=== PATIENT | female | born 1965 | race Caucasian/White ===

== ENCOUNTER 2016-11-17 07:33 | Emergency (ER) | payer OTHER ==
[~2016-11-17] VITALS: Ht 152.4 cm; Wt 74.0 kg
[~2016-11-17 07:33] MED LIST: GABA-528 PO; INSU100C SQ; MECL12.574 PO; PRAV40TA76 PO; TRAM50TA2 PO
[2016-11-17 07:34] VITALS: Ht 152.4 cm; Wt 74.0 kg
[2016-11-17] MEDS ORDERED: DIPHTH/TET/ACEL PERTUSS (ADULT) 0.5 ML VIAL IM* ONE (08:30)
[2016-11-17] MEDS ORDERED: LIDOCAINE 1%/EPI (MDV) 20 ML INJ SC ONE (08:30)
--- NOTE | 2016-11-17 09:31 | RADRPT ---
PROCEDURE: XR Sacrum and Coccyx CLINICAL INDICATION: Pain TECHNIQUE: 3 views were submitted COMPARISON: None FINDINGS: Osseous structures: appear well mineralized and intact with no fracture or destructive process iden tified. Joint spaces: the sacroiliac joints appear unremarkable without significant erosions or sclerosis. Soft tissues: Phleboliths are seen in the pelvis. IMPRESSION: Unremarkable sacrum and coccyx study. Physician Elissa Date Time Electronically viewed and signed by Marcelo Anaya Physician on 11/17/2016 09:31 /
--- NOTE | 2016-11-17 09:53 | ERD ---
ER Documentation Chief Complaint Date/Time DATE: 11/17/16 TIME: 09:50 Chief Complaint pt bib family with c/o head lac s/p trip and fall at home, HPI This is a 51-year-old female presenting to the emergency department complaining of a scalp laceration on the right upper parietal scalp region since she slipped on a plastic bag at 7:00 this morning. Patient states that she did not have any nausea, vomiting, headache, dizziness. Patient states that she fell down and hit her buttock region and then hit her right top of her head.. She denies any neuro deficits. Denies any saddle anesthesia, bladder or bowel incontinence ROS All systems reviewed and are negative except as per history of present illness. Medications Home Meds Active Scripts Meclizine Hcl* (Antivert*) 12.5 Mg Tab, 12.5 MG PO Q6H Y for DIZZINESS, #20 TAB Prov:BHARATHISenaDERIK DO 08/16/16 Reported Medications Insulin Lispro (Humalog) 100 Unit/1 Ml Cartridge, 35 UNIT SQ QHS 08/16/16 Insulin Lispro (Humalog) 100 Unit/1 Ml Cartridge, 52 UNIT SQ QAM 08/16/16 Pravastatin Sodium* (Pravastatin Sodium*) 40 Mg Tablet, 40 MG PO DAILY, TAB 06/18/15 Tramadol HCl (Tramadol HCl) 50 Mg Tab, 50 MG PO BID Y for PAIN, TAB 06/18/15 Gabapentin* (Gabapentin*) 800 Mg Tablet, 800 MG PO TID 10/16/11 Allergies Allergies: Coded Allergies: No Known Drug Allergies (Verified Allergy, Unknown, 11/17/16) PMhx/Soc History of Surgery: Yes (GALLBLADDER, YOLIS EYE, C SECTION X3) Anesthesia Reaction: No Hx Neurological Disorder: No Hx Respiratory Disorders: Yes (ASTHMA ) Hx Cardiac Disorders: No Hx Psychiatric Problems: No Hx Miscellaneous Medical Probl: Yes (DM, HIGH CHOLESTEROL ) Hx Alcohol Use: No Hx Substance Use: No Hx Tobacco Use: No Physical Exam Vitals Vital Signs Date Time Temp Pulse Resp B/P Pulse Ox O2 Delivery O2 Flow Rate FiO2 11/17/16 07:34 84 18 168/90 99 Physical Exam GENERAL: well-developed/well-nourished, in no apparent distress, non-toxic appearing HENT: NC/AT, bilateral tympanic membrane is normal with good cone of light, nares patent, oropharynx clear without exudates EYES: Conjunctiva normal, PERRLA, EOMI, no nystagmus noted NECK: Supple, no lymphadenopathy PULM: CTA bilaterally, no rales, rhonchi, or wheezing heard CV: Normal S1S2, RRR, good capillary refill GI: Soft, non-distended, normal bowel sounds, non-tender BACK: No midline tenderness, no masses, No CVAT Tenderness to palpation in the coccyx region EXT: No clubbing, cyanosis, or edema NEURO: Alert and orientated to person, place, and time. CN II-IIX intact. Gait and coordination were normal. 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 and within normal limits SKIN: 5 mm superficial abrasion on the right upper parietal scalp PSYCH: Normal mood and mentation, patient denied SI Results 24 hrs Current Medications Medications (Trade) Dose Ordered Sig/Juju Route PRN Reason Start Time Stop Time Status Last Admin Dose Admin Lidocaine/ Epinephrine (Xylocaine 1%/ Epi (Mdv) 20 ml) 20 ml ONCE ONCE SC 11/17/16 08:30 11/17/16 09:26 DC Diphtheria/ Tetanus/Acell Pertussis (Adacel) 0.5 ml ONCE ONCE IM* 11/17/16 08:30 11/17/16 08:31 DC 11/17/16 08:35 Procedures/MDM This is a 51-year-old female presenting to the emergency department complaining of a scalp laceration on the right upper parietal scalp region since she slipped on a plastic bag at 7:00 this morning. Patient states that she fell down and hit her buttock region and then hit her right top of her head. Patient did not have any evidence of nausea, vomiting, neuro deficits. Differentials include intracranial bleeding, skull fracture, concussion, postconcussion headache however it is unlikely due to physical examination. Patient had a normal neuro exam and was acting normal in the examination room. CT scan's risks outweigh benefits, therefore discussed that observation is best and to watch out for any changes to return back to this facility. Patient expressed agreement and did not want to do a CT scan On examination patient had a scalp abrasion versus laceration on the right parietal lobe, it was very superficial and did not need any mike or suturing. The region was cleansed with peroxide and irrigated with normal saline. Bacitracin was applied. On examination patient was tender in the coccyx region, an x-ray was done and was unremarkable for any fracture. This likely a coccyx contusion stable and neurovascularly intact. Strict precautions were given to return to the ER for any worsening condition or not improving as expected. Patient understood and agreed with this plan. Departure Diagnosis: Primary Impression: Scalp laceration Encounter type: initial encounter Qualified Code: S01.01XA - Scalp laceration, initial encounter Additional Impressions: Coccyx contusion Encounter type: initial encounter Qualified Code: S30.0XXA - Coccyx contusion, initial encounter Head injury Encounter type: initial encounter Qualified Code: S09.90XA - Head injury, initial encounter Condition: Stable Patient Instructions: First Aid: Head Injuries, Scalp Contusion, No Wake Up, HEAD INJURY, No Wake-Up (Adult), Laceration, Scalp Additional Instructions: Visite a leach ilana alfaro para un EXAMEN.Regrese a estas instalaciones si no se mejora le esperbamos o le le dijimos. Sasser toda la medicina davidson y le se le indic. Regrese a estas instalaciones si no se mejora le esperbamos o le le dijimos. MINA PIMENTEL PA-C Nov 17, 2016 09:53
[2016-11-17] MEDS ORDERED: ACET500C5 PO (09:54)
[2016-11-17 10:05] VITALS: BP 154/89; PULSE 79; RESP 18; TEMP 98.4
== END 2016-11-17 10:05 | disposition home or self-care (01) ==
LOC: FTE 07:33
DX: S01.01XA Laceration without foreign body of scalp, initial encounter (principal); S30.0XXA Contusion of lower back and pelvis, initial encounter; J45.909 Unspecified asthma, uncomplicated; E11.9 Type 2 diabetes mellitus without complications; W01.198A Fall on same level from slipping, tripping and stumbling with subsequent striking against other object, initial encounter; Y92.009 Unspecified place in unspecified non-institutional (private) residence as the place of occurrence of the external cause; Z23 Encounter for immunization; Z79.4 Long term (current) use of insulin
CPT/HCPCS: 72220; 90715; Z7610; 90471

== ENCOUNTER 2017-09-06 18:35 | Emergency (ER) | payer OTHER ==
[~2017-09-06] VITALS: Ht 162.6 cm; Wt 75.8 kg
[~2017-09-06 18:35] MED LIST changes: +ACET500C5 PO
[2017-09-06 18:40] VITALS: Ht 162.6 cm; Wt 75.8 kg
[2017-09-06] MEDS ORDERED: ONDANSETRON 4 MG INJ IV STA (21:14)
[2017-09-06] MEDS ORDERED: morphine 4 MG/ML VIAL IV STA (21:14)
[2017-09-06] MEDS ORDERED: SOD CHLORIDE 0.9% 1,000 ML IV STA (21:14)
[2017-09-06 22:16] LABS: ADD UMIC YES; UR ASCORBIC ACID 40 mg/dL (NEGATIVE); UR BACTERIA FEW /HPF (NONE SEEN); UR BILIRUBIN (Dip) NEGATIVE (NEGATIVE); UR BLOOD (Dip) NEGATIVE (NEGATIVE); UR CLARITY SLIGHTLY CLOUDY (CLEAR); UR COLOR YELLOW (YELLOW); UR GLUCOSE (Dip) 1+ mg/dL (NEGATIVE); UR KETONES (Dip) NEGATIVE (NEGATIVE); UR LEUKOCYTE ESTERASE (Dip) NEGATIVE Leu/ul (NEGATIVE); UR MUCUS FEW /HPF (NONE SEEN); UR NITRITE (Dip) NEGATIVE (NEGATIVE); UR RBC 3 /HPF (0-5); UR SPECIFIC GRAVITY (Dip) 1.027 (1.003-1.030); UR SQUAMOUS EPITHELIAL CELL FEW /HPF (FEW); UR TOTAL PROTEIN (Dip) 3+ mg/dl (NEGATIVE); UR UROBILINOGEN (Dip) NEGATIVE (NEGATIVE)
[2017-09-06 22:16] LABS: BASOPHILS % 0.3 % (0.0-2.0); EOSINOPHILS # 0.1 10^3/ul (0.0-0.5); EOSINOPHILS % 0.7 % (0.0-7.0); HEMATOCRIT 40.3 % (37.0-47.0); HEMOGLOBIN 13.9 g/dl (12.0-16.0); MEAN CORPUSCULAR HEMOGLOBIN 30.3 pg (29.0-33.0); MEAN CORPUSCULAR HGB CONC 34.5 g/dl (32.0-37.0); MEAN PLATELET VOLUME 10.5 fl (7.4-10.4); MONOCYTE # 0.6 10^3/ul (0.3-0.9); MONOCYTES % 5.6 % (0.0-11.0); NEUTROPHIL # 5.8 10^3/ul (1.6-7.5); NEUTROPHILS % 55.1 % (39.0-77.0); PLATELET COUNT 288 10^3/UL (140-415); RED BLOOD COUNT 4.58 10^6/ul (4.20-5.40); RED CELL DISTRIBUTION WIDTH 11.8 % (11.5-14.5); WHITE BLOOD COUNT 10.5 10^3/ul (4.8-10.8)
--- NOTE | 2017-09-06 22:22 | RADRPT ---
PROCEDURE: XR Chest. CLINICAL INDICATION: Chest pain TECHNIQUE: Single portable view of the chest was obtained COMPARISON: CR CHEST 08/16/2016 FINDINGS: The heart and mediastinum are within normal limits. There are mild bibasilar atelectatic changes. The lungs are otherwise clear. There is no pleural effusion or pneumothorax. RPTAT: AA IMPRESSION: Mild bibasilar linear atelectatic changes, left greater than right. .Smooth Lopez MD, MD Date Time Electronically viewed and signed by .Smooth Lopez MD, MD on 09/06/2017 22:21 .S/
--- NOTE | 2017-09-06 22:24 | RADRPT ---
PROCEDURE: XR Abdomen. CLINICAL INDICATION: Abdominal pain. TECHNIQUE: 4 frontal views of the abdomen. COMPARISON: None. FINDINGS: There is moderate retained stool within the colon. Cholecystectomy clips are present. There is no b owel obstruction or free air. There is no organomegaly. There is no abnormal calcification. The o sseous structures are unremarkable. IMPRESSION: Moderate retained stool within the colon. Status post cholecystectomy. .Gilbert Rouse MD, MD Date Time Electronically viewed and signed by .Gilbert Rouse MD, MD on 09/06/2017 22:24 .T/
[2017-09-06 22:34] LABS: ALANINE AMINOTRANSFERASE 50 IU/L (13-69); ALBUMIN 4.2 g/dl (3.3-4.9); ALBUMIN/GLOBULIN RATIO 1.02; ALKALINE PHOSPHATASE 108 IU/L (42-121); ANION GAP 13 (8-16); ASPARTATE AMINO TRANSFERASE 36 IU/L (15-46); BILIRUBIN,INDIRECT 0.5 mg/dl (0-1.1); BILIRUBIN,TOTAL 0.5 mg/dl (0.2-1.3); BLOOD UREA NITROGEN 32 mg/dl (7-20); CARBON DIOXIDE 35 mmol/L (21-31); CHLORIDE 99 mmol/L (97-110); CREATININE 1.13 mg/dl (0.44-1.00); GLUCOSE 73 mg/dl (70-220); POTASSIUM 3.8 mmol/L (3.5-5.1); SODIUM 143 mmol/L (135-144); TOTAL PROTEIN 8.3 g/dl (6.1-8.1)
[2017-09-06] MEDS ORDERED: KETOROLAC 30 MG INJ IV STA (22:34)
[2017-09-06 22:48] LABS: TROPONIN-I < 0.012 ng/ml (0.00-0.12)
[2017-09-06] MEDS ORDERED: METOCLOPRAMIDE 10 MG INJ IV ONE (23:00)
[2017-09-06] MEDS ORDERED: DIPHENHYDRAMINE 50 MG INJ IV ONE (23:00)
[2017-09-06] MEDS ORDERED: CEFEPIME 1GM/50 ML (PMX) 50 ML IVPB ONE (23:00)
--- NOTE | 2017-09-06 23:22 | RADRPT ---
PROCEDURE: CT brain without contrast. CLINICAL INDICATION: Headache. TECHNIQUE: CT scan of the brain was performed on a multi-detector high-resolution CT scanner. Co ntiguous axial images were obtained from the skull base to the vertex without intravenous contrast. Coronal and sagittal reformatted images were also obtained. Images were reviewed on the PACS works tation. DICOM images are available. One or more of the following dose reduction techniques were used: - Automated exposure control. - Adjustment of the mA and/or kV according to patient size. - Use of iterative reconstruction technique. Exam CTD/vol = 44.63 mGy. Total exam DLP = 720.23 mGy-cm. COMPARISON: 08/16/2016. FINDINGS: The ventricles and cortical sulci are within normal limits for patient's age. There are no areas of abnormal attenuation within the brain parenchyma. There is no mass effect or midline shift. There is no intracranial hemorrhage or abnormal extra-axial collection. There are atherosclerotic calcificat ions within bilateral distal internal carotid and vertebral arteries. The calvarium is intact. There is no evidence of fracture. Visualized paranasal sinuses and mastoid air cells are clear. IMPRESSION: No acute intracranial abnormality identified. Cerebral atherosclerosis. .Gilbert Rosue MD, MD Date Time Electronically viewed and signed by .Gilbert Rouse MD, MD on 09/06/2017 23:21 .T/
[2017-09-06] MEDS ORDERED: NAPR-685 PO (23:39)
[2017-09-06] MEDS ORDERED: ONDA4TAB14 PO (23:39)
[2017-09-06] MEDS ORDERED: POLY17PO6 PO (23:39)
[2017-09-06] MEDS ORDERED: MAGN296S40 PO (23:39)
[2017-09-06] MEDS ORDERED: CIPR500T4 PO (23:39)
[2017-09-06] MEDS ORDERED: NITR-58 PO (23:39)
--- NOTE | 2017-09-06 23:53 | ERD ---
ER Documentation Chief Complaint Chief Complaint epigastric pain w/ vomiting x 2 weeks, headache HPI This 51-year-old female presents for epigastric pain and vomiting this on and off for 2 weeks as well as a headache it is on the right side of her head and her right forehead. She has some dysuria and the abdominal pain radiates to her back in her lower mid back. ROS All systems reviewed and are negative except as per history of present illness. Medications Home Meds Active Scripts Polyethylene Glycol* (Miralax*) 17 Gm Powd.pack, 17 GM PO DAILY for CONSTIPATION , #10 PACKET Prov:TONIA PENALOZA 09/06/17 Magnesium Citrate* (Magnesium Citrate*) 296 Ml Solution, 296 ML PO ONCE, #1 BOTTLE Prov:JOSEF PENALOZA09/06/17 Ondansetron (Ondansetron Odt) 4 Mg Tab.rapdis, 4 MG PO Q6H Y for NAUSEA AND/OR VOMITING, #10 TAB Prov:TONIA PENALOZA 09/06/17 Naproxen* (Naproxen*) 375 Mg Tablet, 375 MG PO BID Y for PAIN, #20 TAB Prov:JOSEF PENALOZA09/06/17 Nitrofurantoin Monohyd Macrocr* (Macrobid*) 100 Mg Capsr, 100 MG PO BID for 10 Days, CAP Prov:JOSEF PENALOZA09/06/17 Ciprofloxacin Hcl* (Ciprofloxacin Hcl*) 500 Mg Tablet, 500 MG PO BID for 10 Days , TAB Prov:TONIA PENALOZA 09/06/17 Acetaminophen* (Tylophen*) 500 Mg Capsule, 1 CAP PO Q4H WHILE AWAKE Y for PAIN AND OR ELEVATED TEMP, #20 CAP Prov:MINA PIMENTEL PA-C 11/17/16 Meclizine Hcl* (Antivert*) 12.5 Mg Tab, 12.5 MG PO Q6H Y for DIZZINESS, #20 TAB Prov:DERIK MCMAHON DO 08/16/16 Reported Medications Insulin Lispro (Humalog) 100 Unit/1 Ml Cartridge, 35 UNIT SQ QHS 08/16/16 Insulin Lispro (Humalog) 100 Unit/1 Ml Cartridge, 52 UNIT SQ QAM 08/16/16 Pravastatin Sodium* (Pravastatin Sodium*) 40 Mg Tablet, 40 MG PO DAILY, TAB 06/18/15 Tramadol HCl (Tramadol HCl) 50 Mg Tab, 50 MG PO BID Y for PAIN, TAB 06/18/15 Gabapentin* (Gabapentin*) 800 Mg Tablet, 800 MG PO TID 10/16/11 Allergies Allergies: Coded Allergies: No Known Drug Allergies (Verified Allergy, Unknown, 11/17/16) PMhx/Soc History of Surgery: No Anesthesia Reaction: No Hx Neurological Disorder: No Hx Respiratory Disorders: Yes (ASTHMA ) Hx Cardiac Disorders: Yes (High cholesterol) Hx Psychiatric Problems: No Hx Alcohol Use: No Hx Substance Use: No Hx Tobacco Use: No Smoking Status: Never smoker Physical Exam Vitals Vital Signs Date Time Temp Pulse Resp B/P Pulse Ox O2 Delivery O2 Flow Rate FiO2 09/06/17 18:40 98.3 82 20 190/87 98 Physical Exam Const: [] Mild distress, appears uncomfortable Head: Atraumatic Eyes: Normal Conjunctiva ENT: Normal External Ears, Nose and Mouth. Neck: Full range of motion..~ No meningismus. Resp: Clear to auscultation bilaterally Cardio: Regular rate and rhythm, no murmurs Abd: Soft, non tender, non distended. Normal bowel sounds Skin: No petechiae or rashes Back: No midline or flank tenderness Ext: No cyanosis, or edema Neur: Awake and alert oriented 3, no focal deficits Psych: Normal Mood and Affect Result Diagram: 09/06/17214909/06/172149 Results 24 hrs Laboratory Tests Test 09/06/17 21:50 09/06/17 21:58 White Blood Count 10.510^3/ul Red Blood Count 4.5810^6/ul Hemoglobin 13.9g/dl Hematocrit 40.3% Mean Corpuscular Volume 88.0fl Mean Corpuscular Hemoglobin 30.3pg Mean Corpuscular Hemoglobin Concent 34.5g/dl Red Cell Distribution Width 11.8% Platelet Count 69880^3/UL Mean Platelet Volume 10.5fl Neutrophils % 55.1% Lymphocytes % 38.0% Monocytes % 5.6% Eosinophils % 0.7% Basophils % 0.3% Nucleated Red Blood Cells % 0.0/100WBC Neutrophils # 5.810^3/ul Lymphocytes # 4.010^3/ul Monocytes # 0.610^3/ul Eosinophils # 0.110^3/ul Basophils # 0.010^3/ul Nucleated Red Blood Cells # 0.010^3/ul Sodium Level 143mmol/L Potassium Level 3.8mmol/L Chloride Level 99mmol/L Carbon Dioxide Level 35mmol/L Anion Gap 13 Blood Urea Nitrogen 32mg/dl Creatinine 1.13mg/dl Glucose Level 73mg/dl Calcium Level 11.0mg/dl Total Bilirubin 0.5mg/dl Direct Bilirubin 0.00mg/dl Indirect Bilirubin 0.5mg/dl Aspartate Amino Transf (AST/SGOT) 36IU/L Alanine Aminotransferase (ALT/SGPT) 50IU/L Alkaline Phosphatase 108IU/L Troponin I < 0.012ng/ml Total Protein 8.3g/dl Albumin 4.2g/dl Globulin 4.10g/dl Albumin/Globulin Ratio 1.02 Lipase 31U/L Urine Color YELLOW Urine Clarity SLIGHTLY CLOUDY Urine pH 5.0 Urine Specific [place] 1.027 Urine Ketones NEGATIVEmg/dL Urine Nitrite NEGATIVEmg/dL Urine Bilirubin NEGATIVEmg/dL Urine Urobilinogen NEGATIVEmg/dL Urine Leukocyte Esterase NEGATIVELeu/ul Urine Microscopic RBC 3/HPF Urine Microscopic WBC 7/HPF Urine Squamous Epithelial Cells FEW/HPF Urine Bacteria FEW/HPF Urine Mucus FEW/HPF Urine Hemoglobin NEGATIVEmg/dL Urine Glucose 1+mg/dL Urine Total Protein 3+mg/dl Current Medications Medications (Trade) Dose Ordered Sig/Juju Route PRN Reason Start Time Stop Time Status Last Admin Dose Admin Sodium Chloride (NS) 1,000 ml @ 1,000 mls/hr Q1H STAT IV 09/06/17 21:14 09/06/17 22:13 DC 09/06/17 22:21 Morphine Sulfate (morphine) 4 mg ONCE STAT IV 09/06/17 21:14 09/06/17 21:15 DC Ondansetron HCl (Zofran Inj) 4 mg ONCE STAT IV 09/06/17 21:14 09/06/17 21:15 DC 09/06/17 22:22 Ketorolac Tromethamine 30 mg 30 mg ONCE STAT IV 09/06/17 22:34 09/06/17 22:35 DC 09/06/17 22:42 Cefepime HCl (Maxipime 1gm/50 ml (Pmx)) 50 ml @ 100 mls/hr ONCE ONCE IVPB 09/06/17 23:00 09/06/17 23:29 DC 09/06/17 23:05 Diphenhydramine HCl (Benadryl) 12.5 mg ONCE ONCE IV 09/06/17 23:00 09/06/17 23:01 DC 09/06/17 23:05 Metoclopramide HCl (Reglan) 10 mg ONCE ONCE IV 09/06/17 23:00 09/06/17 23:01 DC 09/06/17 23:06 Procedures/MDM 51-year-old female with abdominal pain is likely a combination of some constipation as well as pyelonephritis. She was given normal saline as well as cefepime in the emergency room. Also complained of headache and a CT was performed to look for any mass or intracranial cause of right-sided headache and was found. She was given a headache cocktail of Benadryl 2.5 mg in Reglan 10 mg which helped her headache greatly. She was given a Toradol injection and she did not want morphine. This helped her with her abdominal pain greatly. Nausea was resolved with Zofran. Cardiac workup with troponin EKG was performed because of epigastric pain however there is no signs of ischemia patient had normal EKG. I am going to discharge her with Zofran, Cipro and Macrobid for pyelonephritis as well as naproxen for pain and MiraLAX and magnesium citrate for constipation. Primary care follow-up in 2-3 days and return precautions given. CT brain interpretation: See no acute process. I see no hemorrhage, no mass- effect, no midline shift, no skull fracture Abdominal x-ray interpretation: Moderate stool retention transverse, descending and ascending colon, no free air or air-fluid levels, no fractures Chest x-ray interpretation: I see no acute process, see no filtrate, no pulmonary edema, no fractures, no pneumothorax. EKG interpretation: Normal sinus rhythm rate of 76, right axis deviation, no ST or T-wave changes concerning for acute ischemia, normal intervals. Departure Diagnosis: Primary Impression: Abdominal pain, acute Additional Impressions: Pyelonephritis Constipation Renal insufficiency Condition: Stable Patient Instructions: Constipation (Adult), Headache, Unspecified, Pyelonephritis, Female (Adult) Additional Instructions: Llame al doctor MAANA y lc ellie KASSANDRA PARA DENTRO DE 2-3 MORGAN.Dgale a la secretaria que nosotros le instruimos hacer esta kassandra.Avise o llame si leach condicin se empeora antes de la kassandra. Regresa aqui si peor o no mejor. TONIA PENALOZA DO Sep 06, 2017 23:51
[2017-09-07 00:16] VITALS: BP 146/86; PULSE 70; RESP 18; TEMP 98.1
== END 2017-09-07 00:17 | disposition home or self-care (01) ==
LOC: E/R 18:35
DX: N12 Tubulo-interstitial nephritis, not specified as acute or chronic (principal); K59.00 Constipation, unspecified; N28.9 Disorder of kidney and ureter, unspecified; J45.909 Unspecified asthma, uncomplicated; R51 Headache; Z79.4 Long term (current) use of insulin
CPT/HCPCS: 36415; 70450; 71010; 74010; 80053; 81001; 83690; 84484; 85025; 96374; 96375; J0692; J1200; J1885; J2405; J2765; J7030; Z7502; 93005; J2270

== ENCOUNTER 2017-09-09 14:55 | Emergency (ER) | payer OTHER ==
[~2017-09-09] VITALS: Ht 160 cm; Wt 75.7 kg
[~2017-09-09 14:55] MED LIST changes: +CIPR500T4 PO; +MAGN296S40 PO; +NAPR-685 PO; +NITR-58 PO; +ONDA4TAB14 PO; +POLY17PO6 PO
[2017-09-09 15:02] VITALS: Ht 160 cm; Wt 75.7 kg
[2017-09-09] MEDS ORDERED: KETOROLAC 30 MG INJ IV STA (19:19)
[2017-09-09] MEDS ORDERED: ONDANSETRON 4 MG INJ IV STA (19:19)
--- NOTE | 2017-09-09 20:00 | RADRPT ---
PROCEDURE: CT abdomen and pelvis without contrast. CLINICAL INDICATION: Abdominal Pain TECHNIQUE: CT scan of the abdomen and pelvis without contrast was performed and is reconstructed a t 2.5 mm contiguous axial intervals from the dome of the diaphragm to the inferior pubic rami.. The patient was scanned without intravenous contrast. Sagittal and coronal reformatted images were obt ained from the axial source images. The calculated radiation dose measures 950 mGy centimeters. The CTDI measures 16 mGy. Individualized dose optimization technique was used for the performance of this exam. This included 1. Automated exposure control. 2. Adjustment of the mA and / or kV according to the patient's size. 3. Use of iterative reconstructed technique. COMPARISON: None. FINDINGS: The lung bases are clear of any alveolar infiltrate or nodule. Mild ground-glass interstitial infilt rates are seen at the lung bases. No effusion is seen. The liver is of normal size, contour and attenuation with no mass or ductal dilatation. Gallbladder has been removed. No splenic, adrenal or pancreatic abnormalities present. Kidneys are of normal size and contour. No hydronephrosis, calculus or masses seen. Ureters are o f normal course and caliber with no stone. No bladder mass or stone is present. Uterus is unremarka ble. No adnexal mass There is no aneurysm. No adenopathy is present. No bowel mass or obstruction is present. The appendix is normal. No phlegmon, ascites or pneumop eritoneum is visualized. There is a midline lower pelvic wall hernia containing fat. The osseous structures are intact. IMPRESSION: No evidence of urolithiasis, obstructive uropathy, diverticulitis or appendicitis. Post cholecystectomy. Lower ventral pelvic wall hernia containing fat. Mild ground-glass interstitial infiltrates lung bases suggestive of mild interstitial edema. .Rob Perez MD, MD Date Time Electronically viewed and signed by .Rob Perez MD, MD on 09/09/2017 20:00 .A/
[2017-09-09] MEDS ORDERED: ONDA4TAB14 PO (20:29)
[2017-09-09] MEDS ORDERED: HYDR-902 PO (20:29)
[2017-09-09 20:51] LABS: BASOPHILS % 0.3 % (0.0-2.0); EOSINOPHILS # 0.1 10^3/ul (0.0-0.5); EOSINOPHILS % 0.7 % (0.0-7.0); HEMATOCRIT 40.3 % (37.0-47.0); HEMOGLOBIN 13.9 g/dl (12.0-16.0); LYMPHOCYTES # 2.9 10^3/ul (0.8-2.9); LYMPHOCYTES % 30.9 % (15.0-51.0); MEAN CORPUSCULAR HEMOGLOBIN 30.3 pg (29.0-33.0); MEAN CORPUSCULAR HGB CONC 34.5 g/dl (32.0-37.0); MEAN CORPUSCULAR VOLUME 87.8 fl (82.0-101.0); MEAN PLATELET VOLUME 10.7 fl (7.4-10.4); MONOCYTE # 0.5 10^3/ul (0.3-0.9); MONOCYTES % 4.8 % (0.0-11.0); NEUTROPHILS % 63.1 % (39.0-77.0); PLATELET COUNT 306 10^3/UL (140-415); RED BLOOD COUNT 4.59 10^6/ul (4.20-5.40); RED CELL DISTRIBUTION WIDTH 11.6 % (11.5-14.5); WHITE BLOOD COUNT 9.4 10^3/ul (4.8-10.8)
--- NOTE | 2017-09-09 20:53 | ERD ---
ER Documentation Chief Complaint Chief Complaint epigastric pain and vomiting x 2 weeks HPI Patient is a 51 yo female with mid epigastric ap for 2 weeks. It comes and goes and she has vomiting as well. There are no fevers. She was seen 09/06/17 for abd pain and had labs, CXR, KUB, CT brain and was diagnosed with pyelo and constipation. The patient has multiple visits for various complaints upon review of medical records. Her doctor is Dr. Dhillon. ROS All systems reviewed and are negative except as per history of present illness. Medications Home Meds Active Scripts Ondansetron (Ondansetron Odt) 4 Mg Tab.rapdis, 4 MG PO Q6H Y for NAUSEA AND/OR VOMITING, #10 TAB Prov:TRISTIAN RODRÍGUEZ MD 09/09/17 Hydrocodone/Acetaminophen ([place] 10-325 Tablet) 1 Each Tablet, 1 TAB PO Q6H Y for PAIN, #7 TAB Prov:TRISTIAN RODRÍGUEZ MD 09/09/17 Polyethylene Glycol* (Miralax*) 17 Gm Powd.pack, 17 GM PO DAILY for CONSTIPATION , #10 PACKET Prov:TONIA PENALOZA 09/06/17 Magnesium Citrate* (Magnesium Citrate*) 296 Ml Solution, 296 ML PO ONCE, #1 BOTTLE Prov:09/06/17 Ondansetron (Ondansetron Odt) 4 Mg Tab.rapdis, 4 MG PO Q6H Y for NAUSEA AND/OR VOMITING, #10 TAB Prov:09/06/17 Naproxen* (Naproxen*) 375 Mg Tablet, 375 MG PO BID Y for PAIN, #20 TAB Prov:09/06/17 Nitrofurantoin Monohyd Macrocr* (Macrobid*) 100 Mg Capsr, 100 MG PO BID for 10 Days, CAP Prov:TONIA09/06/17 Ciprofloxacin Hcl* (Ciprofloxacin Hcl*) 500 Mg Tablet, 500 MG PO BID for 10 Days , TAB Prov:BAILEYTONIA09/06/17 Acetaminophen* (Tylophen*) 500 Mg Capsule, 1 CAP PO Q4H WHILE AWAKE Y for PAIN AND OR ELEVATED TEMP, #20 CAP Prov:MINA PIMENTEL PA-C 11/17/16 Meclizine Hcl* (Antivert*) 12.5 Mg Tab, 12.5 MG PO Q6H Y for DIZZINESS, #20 TAB Prov:DERIK MCMAHON DO 08/16/16 Reported Medications Insulin Lispro (Humalog) 100 Unit/1 Ml Cartridge, 35 UNIT SQ QHS 08/16/16 Insulin Lispro (Humalog) 100 Unit/1 Ml Cartridge, 52 UNIT SQ QAM 08/16/16 Pravastatin Sodium* (Pravastatin Sodium*) 40 Mg Tablet, 40 MG PO DAILY, TAB 06/18/15 Tramadol HCl (Tramadol HCl) 50 Mg Tab, 50 MG PO BID Y for PAIN, TAB 06/18/15 Gabapentin* (Gabapentin*) 800 Mg Tablet, 800 MG PO TID 10/16/11 Allergies Allergies: Coded Allergies: No Known Drug Allergies (Verified Allergy, Unknown, 11/17/16) PMhx/Soc History of Surgery: No Anesthesia Reaction: No Hx Neurological Disorder: No Hx Respiratory Disorders: Yes (ASTHMA ) Hx Cardiac Disorders: Yes (High cholesterol) Hx Psychiatric Problems: No Hx Alcohol Use: No Hx Substance Use: No Hx Tobacco Use: No FmHx Family History: diabetes Physical Exam Vitals Vital Signs Date Time Temp Pulse Resp B/P Pulse Ox O2 Delivery O2 Flow Rate FiO2 09/09/17 15:02 98.6 78 18 168/82 96 Physical Exam Const: Mod distress secondary to pain Head: Atraumatic Eyes: Normal Conjunctiva ENT: Normal External Ears, Nose and Mouth. Neck: Full range of motion..~ No meningismus. Resp: Clear to auscultation bilaterally Cardio: Regular rate and rhythm, no murmurs Abd: Soft, diffuse TTP without guarding Skin: No petechiae or rashes Back: No midline or flank tenderness Ext: No cyanosis, or edema Neur: Awake and alert Psych: Normal Mood and Affect Results 24 hrs Laboratory Tests Test 09/09/17 20:35 White Blood Count Pending Red Blood Count Pending Hemoglobin Pending Hematocrit Pending Mean Corpuscular Volume Pending Mean Corpuscular Hemoglobin Pending Mean Corpuscular Hemoglobin Concent Pending Red Cell Distribution Width Pending Platelet Count Pending Mean Platelet Volume Pending Current Medications Medications (Trade) Dose Ordered Sig/Juju Route PRN Reason Start Time Stop Time Status Last Admin Dose Admin Ondansetron HCl (Zofran Inj) 4 mg ONCE STAT IV 09/09/17 19:19 09/09/17 19:20 DC 09/09/17 20:24 Ketorolac Tromethamine (Toradol) 30 mg ONCE STAT IV 09/09/17 19:19 09/09/17 19:20 DC 09/09/17 20:24 Procedures/MDM CT abd and pelvis neg for surgical process per radiology. Labs pending. 51 yo female who presents with abd pain. CT negative and patient has had cholecystectomy. Labs and pending but if these are normal I believe outpatient management is appropriate. Patient will be signed out to Dr. Huber for follow up on labs. Doubt cholecystectomy or appendicitis or bowel obstruction at this time. Departure Diagnosis: Primary Impression: Abdominal pain Abdominal location: generalized Qualified Code: R10.84 - Generalized abdominal pain Condition: Fair Patient Instructions: Abdominal Pain Additional Instructions: Visite a leach ilana alfaro para un EXAMEN.Regrese a estas instalaciones si no se mejora le esperbamos o le delma vega. TRISTIAN RODRÍGUEZ MD Sep 09, 2017 20:53
[2017-09-09 21:11] LABS: ALANINE AMINOTRANSFERASE 38 IU/L (13-69); ALBUMIN 4.2 g/dl (3.3-4.9); ALKALINE PHOSPHATASE 104 IU/L (42-121); ANION GAP 15 (8-16); ASPARTATE AMINO TRANSFERASE 28 IU/L (15-46); BILIRUBIN,INDIRECT 0.2 mg/dl (0-1.1); BILIRUBIN,TOTAL 0.2 mg/dl (0.2-1.3); BLOOD UREA NITROGEN 20 mg/dl (7-20); CALCIUM 9.7 mg/dl (8.4-10.2); CARBON DIOXIDE 30 mmol/L (21-31); CHLORIDE 98 mmol/L (97-110); CREATININE 1.14 mg/dl (0.44-1.00); GLUCOSE 180 mg/dl (70-220); SODIUM 139 mmol/L (135-144)
[2017-09-09 21:23] LABS: TROPONIN-I < 0.012 ng/ml (0.00-0.12)
[2017-09-09 21:38] LABS: URINE BLOOD (Dip) POC 1+ (NEGATIVE)
[2017-09-09 21:52] LABS: ADD UMIC YES; UR ASCORBIC ACID NEGATIVE (NEGATIVE); UR BILIRUBIN (Dip) NEGATIVE (NEGATIVE); UR BLOOD (Dip) NEGATIVE (NEGATIVE); UR CLARITY CLEAR (CLEAR); UR COLOR YELLOW (YELLOW); UR GLUCOSE (Dip) 1+ mg/dL (NEGATIVE); UR KETONES (Dip) TRACE mg/dL (NEGATIVE); UR LEUKOCYTE ESTERASE (Dip) NEGATIVE Leu/ul (NEGATIVE); UR MUCUS FEW /HPF (NONE SEEN); UR NITRITE (Dip) NEGATIVE (NEGATIVE); UR RBC 4 /HPF (0-5); UR SQUAMOUS EPITHELIAL CELL FEW /HPF (FEW); UR TOTAL PROTEIN (Dip) 3+ mg/dl (NEGATIVE); UR UROBILINOGEN (Dip) NEGATIVE (NEGATIVE)
[2017-09-09 23:23] VITALS: BP 107/62; PULSE 73; RESP 18; TEMP 97.7
== END 2017-09-09 23:25 | disposition home or self-care (01) ==
LOC: E/R 14:55
DX: R10.84 Generalized abdominal pain (principal); J45.909 Unspecified asthma, uncomplicated; E11.9 Type 2 diabetes mellitus without complications; Z79.4 Long term (current) use of insulin
CPT/HCPCS: 36415; 74176; 80053; 81001; 83690; 84484; 85025; 93005; 96374; 96375; J1885; J2405; Z7502; 81003

== ENCOUNTER 2017-09-27 17:32 | Emergency (ER) | payer OTHER ==
[~2017-09-27] VITALS: Ht 157.5 cm; Wt 76.8 kg
[~2017-09-27 17:32] MED LIST changes: +HYDR-902 PO
[2017-09-27 17:35] VITALS: Ht 157.5 cm; Wt 76.8 kg
[2017-09-27] MEDS ORDERED: CLIN-73 PO (20:32)
--- NOTE | 2017-09-27 20:39 | ERD ---
ER Documentation Chief Complaint Chief Complaint Complains of laceration to right foot HPI 52-year-old female with a history of hypertension and diabetes mellitus type 2 presents with a chief complaints of opening on foot 3 days. Patient 3 days ago peeled a part of her skin off, and since has become progressively worse over the past 3 days. Has not taken any medications to relieve the symptoms. Pain is 6/10 and worse with walking. Denies trauma, fever, chills, increased loss of sensation, tingling, loss of range of motion. Patient has no other complaints and describes no other associated manifestations. Vaccination status unknown. Nursing notes have been reviewed and are consistent with history given. ROS All systems reviewed and are negative except as per history of present illness. Medications Home Meds Active Scripts Clindamycin Hcl* (Clindamycin Hcl*) 300 Mg Capsule, 300 MG PO TID for 10 Days, CAP Prov:SERAFIN PERES PA-C 09/27/17 Ondansetron (Ondansetron Odt) 4 Mg Tab.rapdis, 4 MG PO Q6H Y for NAUSEA AND/OR VOMITING, #10 TAB Prov:TRISTIAN RODRÍGUEZ MD 09/09/17 Hydrocodone/Acetaminophen ([place] 10-325 Tablet) 1 Each Tablet, 1 TAB PO Q6H Y for PAIN, #7 TAB Prov:TRISTIAN RODRÍGUEZ MD 09/09/17 Polyethylene Glycol* (Miralax*) 17 Gm Powd.pack, 17 GM PO DAILY for CONSTIPATION , #10 PACKET Prov:TONIA PENALOZA DO 09/06/17 Magnesium Citrate* (Magnesium Citrate*) 296 Ml Solution, 296 ML PO ONCE, #1 BOTTLE Prov:TONIA PENALOZA DO 09/06/17 Ondansetron (Ondansetron Odt) 4 Mg Tab.rapdis, 4 MG PO Q6H Y for NAUSEA AND/OR VOMITING, #10 TAB Prov:TONIA PENALOZA DO 09/06/17 Naproxen* (Naproxen*) 375 Mg Tablet, 375 MG PO BID Y for PAIN, #20 TAB Prov:TONIA PENALOZA DO 09/06/17 Nitrofurantoin Monohyd Macrocr* (Macrobid*) 100 Mg Capsr, 100 MG PO BID for 10 Days, CAP Prov:TONIA PENALOZA DO 09/06/17 Ciprofloxacin Hcl* (Ciprofloxacin Hcl*) 500 Mg Tablet, 500 MG PO BID for 10 Days , TAB Prov:TONIA PENALOZA DO 09/06/17 Acetaminophen* (Tylophen*) 500 Mg Capsule, 1 CAP PO Q4H WHILE AWAKE Y for PAIN AND OR ELEVATED TEMP, #20 CAP Prov:MINA PIMENTEL PA-C 11/17/16 Meclizine Hcl* (Antivert*) 12.5 Mg Tab, 12.5 MG PO Q6H Y for DIZZINESS, #20 TAB Prov:SINDHUBERTHADERIK Shetty DO 08/16/16 Reported Medications Insulin Lispro (Humalog) 100 Unit/1 Ml Cartridge, 35 UNIT SQ QHS 08/16/16 Insulin Lispro (Humalog) 100 Unit/1 Ml Cartridge, 52 UNIT SQ QAM 08/16/16 Pravastatin Sodium* (Pravastatin Sodium*) 40 Mg Tablet, 40 MG PO DAILY, TAB 06/18/15 Tramadol HCl (Tramadol HCl) 50 Mg Tab, 50 MG PO BID Y for PAIN, TAB 06/18/15 Gabapentin* (Gabapentin*) 800 Mg Tablet, 800 MG PO TID 10/16/11 Allergies Allergies: Coded Allergies: No Known Drug Allergies (Verified Allergy, Unknown, 11/17/16) PMhx/Soc History of Surgery: No Anesthesia Reaction: No Hx Neurological Disorder: No Hx Respiratory Disorders: Yes (ASTHMA ) Hx Cardiac Disorders: Yes (High cholesterol) Hx Psychiatric Problems: No Hx Miscellaneous Medical Probl: Yes (DM, hyperlipidemia, neuropathy) Hx Alcohol Use: No Hx Substance Use: No Hx Tobacco Use: No Smoking Status: Never smoker Physical Exam Vitals Vital Signs Date Time Temp Pulse Resp B/P Pulse Ox O2 Delivery O2 Flow Rate FiO2 09/27/17 17:35 98.7 85 20 132/84 95 Physical Exam Const: Overweight, well-appearing 52-year-old female no acute distress Ext: 1 cm epithelial opening with 1 cm diameter area around the opening. Mild tenderness palpation over the area. Skin: Stasis dermatitis bilaterally. No streaking. No warmth. Head: Atraumatic Eyes: Normal Conjunctiva. PERRLA, EOMI. Neck: Full range of motion..~ No meningismus. Resp: Equal chest expansion. No tripoding or use of accessory muscles. Cardio: Cap refill less than 2 seconds. Pulses 2+ bilaterally. Back: No midline or flank tenderness Neur: Awake and alert. Sensation intact. Psych: Normal Mood and Affect Results 24 hrs Current Medications Medications (Trade) Dose Ordered Sig/Juju Route PRN Reason Start Time Stop Time Status Last Admin Dose Admin Diphtheria/ Tetanus/Acell Pertussis (Adacel) 0.5 ml ONCE ONCE IM* 09/27/17 21:00 09/27/17 21:01 DC 09/27/17 21:10 Procedures/MDM 52-year-old female with history of type 2 diabetes mellitus presents with signs and symptoms most consistent with stage I ulcer. Tdap given in the ED. No trauma. Little suspicion for laceration. Neurovascularly intact. Tendons intact. Sensation intact. Mild tenderness palpation over the area. No signs of cellulitis. I have little suspicion for cellulitis, SJS, SBI, neurovascular compromise, or bony pathology. Most likely diagnosis is stage 1 diabetic foot ulcer. Patient has been given clindamycin and referral to amputation prevention center with instructions to follow-up within the next 1-3 days. Patient is verbally respond that she understands and agrees to the plan of management. Patient is stable and current condition is appropriate for discharge. Discharge medications: Clindamycin Departure Diagnosis: Primary Impression: Diabetic foot ulcer Diabetic foot ulcer location: midfoot Diabetes mellitus type: type 2 Laterality: right Non-pressure ulcer stage: limited to breakdown of skin Qualified Code: E11.621 - Diabetic ulcer of right midfoot associated with type 2 diabetes mellitus, limited to breakdown of skin Condition: Stable Patient Instructions: Diabetic Foot Care Referrals: [facility] Additional Instructions: Krystina un seguimiento con leach [facility] dentro de los prximos 1 -3 stahl. Devuelva el departamento de emergencia inmediatamente si los sntomas empeoran o cambian. Si tiene alguna pregunta con respecto a los medicamentos, consulte con leach farmacutico o con nosotros antes de salir. Si se producen reacciones adversas mientras carin daisy medicamentos, suspenda el tratamiento y regrese inmediatamente al servicio de urgencias. [place] daisy medicamentos segn las indicaciones y complete el curso completo del tratamiento. SERAFIN PERES PA-C Sep 27, 2017 20:39
[2017-09-27] MEDS ORDERED: DIPHTH/TET/ACEL PERTUSS (ADULT) 0.5 ML VIAL IM* ONE (21:00)
== END 2017-09-27 21:35 | disposition home or self-care (01) ==
LOC: FTE 17:32
DX: E11.621 Type 2 diabetes mellitus with foot ulcer (principal); L97.519 Non-pressure chronic ulcer of other part of right foot with unspecified severity; J45.909 Unspecified asthma, uncomplicated; I10 Essential (primary) hypertension; Z23 Encounter for immunization; Z79.4 Long term (current) use of insulin
CPT/HCPCS: 90471; 90715; Z7502

== ENCOUNTER 2017-12-12 16:45 | Emergency (ER) | END 2017-12-12 23:10 | disposition home or self-care (01) ==

== ENCOUNTER 2018-01-08 10:26 | Emergency (ER) | END 2018-01-08 13:56 | disposition home or self-care (01) ==

== ENCOUNTER 2018-07-15 16:32 | Emergency (ER) | END 2018-07-15 20:26 | disposition home or self-care (01) ==

== ENCOUNTER 2018-08-11 11:18 | Emergency (ER) | END 2018-08-11 15:00 | disposition home or self-care (01) ==

== ENCOUNTER 2018-10-12 12:24 | Emergency (ER) | payer OTHER ==
[~2018-10-12] VITALS: Ht 167.6 cm; Wt 79.8 kg
[~2018-10-12 12:24] MED LIST changes: -ACET500C5 PO; +ASPI-817 PO; -CIPR500T4 PO; -HYDR-902 PO; +IBUP-1542 PO; -INSU100C SQ; +INSU100I12 SQ; +INSU100I33 SC; -MAGN296S40 PO; -MECL12.574 PO; -NAPR-685 PO; -NITR-58 PO; -ONDA4TAB14 PO; -POLY17PO6 PO; +TRAM50TA PO; -TRAM50TA2 PO
[2018-10-12 12:33] VITALS: Ht 167.6 cm; Wt 79.8 kg
--- NOTE | 2018-10-12 13:49 | ERD ---
ER Documentation Chief Complaint Chief Complaint Complains of right shoulder pain x 3 days HPI 53-year-old female, with history of diabetes, presents the emergency department, complaining of right shoulder pain during the last 3 days, associated with decreased range of motion. No history of trauma. The pain is dull, constant, 6/10. The patient has been taking tramadol without improvement of the symptoms. She denies fevers, no chills, no rashes. She is also complaining of bilateral feet pruritic rash with a painless ulcer on the left third toe. ROS All systems reviewed and are negative except as per history of present illness. Medications Home Meds Active Scripts Bacitracin* (Bacitracin Zinc Oint*) 28.35 Gm Oint, 1 APPLIC TOP BID for 10 Days, #1 TUB APPLI TO Prov:JAYSON KOENIG MD 10/12/18 Nystatin* (Nystatin*) 15 Gm Cr, 1 APPLIC TOP TID for 7 Days, #1 TUB Prov:JAYSON KOENIG MD 10/12/18 Hydrocodone/Acetaminophen ([place] 5-325 Tablet) 1 Each Tablet, 1 TAB PO BID PRN for PAIN, #10 TAB Prov:JAYSON KOENIG MD 10/12/18 Ibuprofen* (Motrin*) 400 Mg Tab, 400 MG PO Q8, #12 TAB Prov:JAYSON KOENIG MD 10/12/18 Prednisone* (Prednisone*) 20 Mg Tab, 40 MG PO DAILY for 4 Days, TAB Prov:JAYSON KOENIG MD 10/12/18 Reported Medications Insulin Lispro (Humalog Kwikpen U-100) 100 Unit/1 Ml Insuln.pen, 12 UNIT SQ TID, EA 07/15/18 Insulin Glargine,Hum.rec.anlog (Basaglar Kwikpen U-100) 100 Unit/1 Ml Insuln.pen, 80 UNIT SC QHS, EA 07/15/18 Tramadol Hcl* (Ultram*) 50 Mg Tablet, 50 MG PO DAILY PRN for PAIN, TAB 07/15/18 Pravastatin Sodium* (Pravastatin Sodium*) 40 Mg Tablet, 40 MG PO HS, TAB 07/15/18 Gabapentin* (Gabapentin*) 800 Mg Tablet, 800 MG PO TID, #90 TAB 07/15/18 Ibuprofen* (Ibuprofen*) 600 Mg Tablet, 600 MG PO Q8, TAB 07/15/18 Aspirin* (Aspirin* EC) 81 Mg Tablet.dr, 81 MG PO DAILY, TAB 07/15/18 Allergies Allergies: Coded Allergies: No Known Drug Allergies (Verified Allergy, Unknown, 08/11/18) PMhx/Soc History of Surgery: Yes (C/S ,Karen) Anesthesia Reaction: No Hx Neurological Disorder: No Hx Respiratory Disorders: Yes (ASTHMA ) Hx Cardiac Disorders: Yes (High cholesterol) Hx Psychiatric Problems: No Hx Miscellaneous Medical Probl: Yes (DM, hyperlipidemia, neuropathy, blood clots) Hx Alcohol Use: No Hx Substance Use: No Hx Tobacco Use: No Smoking Status: Never smoker FmHx Family History: diabetes; No coronary disease Physical Exam Vitals Vital Signs Date Temp Pulse Resp B/P (MAP) Pulse Ox O2 O2 Flow FiO2 Time Delivery Rate 10/12/18 98.0 71 20 109/65 98 Room Air 15:25 (80) 10/12/18 97.5 77 20 111/53 93 12:33 (72) Physical Exam Const: No acute distress Head: Atraumatic Eyes: Normal Conjunctiva ENT: Normal External Ears, Nose and Mouth. Neck: Full range of motion. No meningismus. Resp: Clear to auscultation bilaterally Cardio: Regular rate and rhythm, no murmurs Abd: Soft, non tender, non distended. Normal bowel sounds Skin: Feet with erythematous plaques in between toes, 0.5 cm superficial ulcer noticed in the left third toe. Back: No midline or flank tenderness Ext: No cyanosis, or edema. Right shoulder: Normal inspection, AC tenderness, decreased range of motion for extension, lateral rotation and abduction. Distal neurovascular exam intact. Neur: Awake and alert Psych: Normal Mood and Affect Procedures/MDM Acute right shoulder pain: no red flags. Differential diagnosis include but not limited to: Shoulder contusion, rotator cuff injury, tendon/ligament injury, arthritis; low suspicion for fracture, dislocation, septic arthritis. Neurovascular exam grossly intact. no clinical findings suggestive of acute infectious process, no acute deformity, no edema, no rashes. Physical examination and clinical presentation consistent most likely with adhesive capsulitis with fungal infection of the superficial abrasion of the left foot. Results and clinical impression discussed with the patient who agrees with management. The patient is stable to be treated outpatient and will be discharged home with recommendations for ice, rest and NSAIDs 3 times daily for 5 days and close monitoring. The patient was instructed to follow up with the primary care provider in the next 48h. If symptoms persist, worsen or new symptoms develop, then patient should return to the ED immediately. Instructions explained and given to patient with acknowledgment and demonstrated understanding. Disclaimer: Inadvertent spelling and grammatical errors are likely due to EHR/dictation software use and do not reflect on the overall quality of patient care. Also, please note that the electronic time recorded on this note does not necessarily reflect the actual time of the patient encounter. Departure Diagnosis: Primary Impression: Adhesive capsulitis of right shoulder Additional Impressions: Superficial skin infection Superficial fungal infection of skin Condition: Stable Additional Instructions: Muchas khushi por [facility] para leach servicio. Esperamos que en leach visita a la bartolome de emergencia leach problema medico haya sido solucionado y que se sienta mucho mejor. Para estar seguros que leach mejoria sigue en proceso, le pedimos el favor de hacer ellie jarred de seguimiento medico con leach doctor primario en los proximos 2-4 buck. Lleve con usted estos documentos y las medicinas recetadas. Si daisy sintomas empeoran, NO SE ESPERE, por favor regrese a bartolome de emergencia INMEDIATAMENTE. En jeanmarie que usted no tenga un mdico de atencin primaria: Llame al mdico o clnica comunitaria de referencia que aparece abajo jimenez las horas de consultorio para hacer ellie jarred para que le vean. CLINICAS: [facility] [phone] [facility] [phone] [facility] [phone] [facility] [phone] [facility] [phone] [facility]. [phone] JAYSON LOVELL MD Oct 12, 2018 13:49
[2018-10-12] MEDS ORDERED: HYDR-4011 PO (15:03)
[2018-10-12] MEDS ORDERED: PRED20TA PO (15:03)
[2018-10-12] MEDS ORDERED: IBUP-1561 PO (15:03)
[2018-10-12] MEDS ORDERED: BACI28.34 TOP (15:05)
[2018-10-12] MEDS ORDERED: NYST15CR28 TOP (15:05)
[2018-10-12 15:25] VITALS: BP 109/65; PULSE 71; RESP 20
== END 2018-10-12 15:19 | disposition home or self-care (01) ==
LOC: FTE 12:24
DX: M75.01 Adhesive capsulitis of right shoulder (principal); L08.9 Local infection of the skin and subcutaneous tissue, unspecified; E11.9 Type 2 diabetes mellitus without complications; J45.909 Unspecified asthma, uncomplicated; Z79.4 Long term (current) use of insulin; Z79.82 Long term (current) use of aspirin
CPT/HCPCS: 73030; Z7502

== ENCOUNTER 2019-02-07 07:09 | Emergency (ER) | payer OTHER ==
[~2019-02-07] VITALS: Ht 160 cm; Wt 80.2 kg
[~2019-02-07 07:09] MED LIST changes: +BACI28.34 TOP; +HYDR-4011 PO; +IBUP-1561 PO; +NYST15CR28 TOP; +PRED20TA PO
[2019-02-07 07:12] VITALS: Ht 160 cm; Wt 80.2 kg
[2019-02-07] MEDS ORDERED: KETOROLAC 60 MG INJ IM STA (08:22)
[2019-02-07] MEDS ORDERED: traMADol 50 MG TAB PO ONE (08:30)
[2019-02-07] MEDS ORDERED: TRAM50TA2 PO (10:32)
[2019-02-07] MEDS ORDERED: NAPR500T8 PO (10:32)
[2019-02-07 11:01] VITALS: BP 118/57; PULSE 75; RESP 19
--- NOTE | 2019-02-07 16:23 | ERD ---
ER Documentation Chief Complaint Chief Complaint LT LEG PAIN X 3 DAYS HPI History of Present Illness: 53-year-old female with past medical history of diabetes and hyperlipidemia coming in today with left upper leg pain that is been present for 3 days ago. Patient is concerned that she has DVT, had a DVT approximately 3 years ago patient reports that DVT last time was asymptomatic, but this time she is having pain especially with touching of pinching area. Patient reports pain feels like pressure and heaviness. At home pharmacological/nonpharmacological treatment for symptoms: Denies Denies social concerns; Denies recent foreign travel ROS All systems reviewed and are negative except as per history of present illness. Medications Home Meds Active Scripts Tramadol HCl (Tramadol HCl) 50 Mg Tablet, 50 MG PO Q8, #9 TAB Prov:PAULA ADAMS NP 02/07/19 Naproxen* (Naproxen EC*) 500 Mg Tablet.dr, 500 MG PO BID PRN for PAIN AND/OR INFLAMMATION, #30 TAB Prov:PAULA ADAMS NP 02/07/19 Bacitracin* (Bacitracin Zinc Oint*) 28.35 Gm Oint, 1 APPLIC TOP BID for 10 Days, #1 TUB APPLI TO Prov:JAYSON KOENIG MD 10/12/18 Nystatin* (Nystatin*) 15 Gm Cr, 1 APPLIC TOP TID for 7 Days, #1 TUB Prov:JAYSON KOENIG MD 10/12/18 Hydrocodone/Acetaminophen ([place] 5-325 Tablet) 1 Each Tablet, 1 TAB PO BID PRN for PAIN, #10 TAB Prov:JAYSON KOENIG MD 10/12/18 Ibuprofen* (Motrin*) 400 Mg Tab, 400 MG PO Q8, #12 TAB Prov:JAYSON KOENIG MD 10/12/18 Prednisone* (Prednisone*) 20 Mg Tab, 40 MG PO DAILY for 4 Days, TAB Prov:JAYSON KOENIG MD 10/12/18 Reported Medications Insulin Lispro (Humalog Kwikpen U-100) 100 Unit/1 Ml Insuln.pen, 12 UNIT SQ TID, EA 07/15/18 Insulin Glargine,Hum.rec.anlog (Basaglar Kwikpen U-100) 100 Unit/1 Ml Insuln.pen, 80 UNIT SC QHS, EA 07/15/18 Tramadol Hcl* (Ultram*) 50 Mg Tablet, 50 MG PO DAILY PRN for PAIN, TAB 07/15/18 Pravastatin Sodium* (Pravastatin Sodium*) 40 Mg Tablet, 40 MG PO HS, TAB 07/15/18 Gabapentin* (Gabapentin*) 800 Mg Tablet, 800 MG PO TID, #90 TAB 07/15/18 Ibuprofen* (Ibuprofen*) 600 Mg Tablet, 600 MG PO Q8, TAB 07/15/18 Aspirin* (Aspirin* EC) 81 Mg Tablet.dr, 81 MG PO DAILY, TAB 07/15/18 Allergies Allergies: Coded Allergies: No Known Drug Allergies (Verified Allergy, Unknown, 08/11/18) PMhx/Soc History of Surgery: Yes (C/S ,Karen) Anesthesia Reaction: No Hx Neurological Disorder: No Hx Respiratory Disorders: Yes (ASTHMA ) Hx Cardiac Disorders: Yes (High cholesterol) Hx Psychiatric Problems: No Hx Miscellaneous Medical Probl: Yes (DM, hyperlipidemia, neuropathy, blood clots) Hx Alcohol Use: No Hx Substance Use: No Hx Tobacco Use: No Smoking Status: Never smoker FmHx Family History: diabetes, coronary disease Physical Exam Vitals Vital Signs Date Temp Pulse Resp B/P (MAP) Pulse Ox O2 O2 Flow FiO2 Time Delivery Rate 02/07/19 98.2 75 19 118/57 100 Room Air 11:01 (77) 02/07/19 98.1 75 18 114/56 96 07:12 (75) Physical Exam Const: No acute distress Head: Atraumatic Eyes: Normal Conjunctiva ENT: Normal External Ears, Nose and Mouth. Neck: Full range of motion. No meningismus. Resp: Clear to auscultation bilaterally Cardio: Regular rate and rhythm, no murmurs Abd: Soft, non tender, non distended. Normal bowel sounds Skin: No petechiae or rashes Back: No midline or flank tenderness Ext: No cyanosis, or edema. No erythema, swelling, warmth to bilateral knees including left upper leg. Neur: Awake and alert Psych: Normal Mood and Affect Results 24 hrs Current Medications Medications Dose Sig/Juju Start Time Status Last (Trade) Ordered Route PRN Stop Time Admin Dose Reason Admin Ketorolac 60 mg ONCE STAT 02/07/19 DC 02/07/19 Tromethamine IM 08:22 08:55 (Toradol) 02/07/19 08:26 Tramadol 50 mg ONCE ONCE 02/07/19 DC 02/07/19 HCl PO 08:30 08:58 (Ultram) 02/07/19 08:31 Procedures/MDM ED course includes a thorough examination and history. Medications: Tramadol, ketorolac Imaging: -- Labs: -- Low suspicion for life-threatening medical emergency. LOW Suspicion for DVT. Patient with palpable pulses. No suspicion for neurovascular compromise. Low s uspicion for infection. patient presenting with constellation of symptoms likely representing uncomplicated pain in the left lower extremity as characterized by history, physical exam findings. No respiratory distress, otherwise relatively well appearing and nontoxic. Patient with decreased pain after medications. Patient able to Sarai without difficulty. Patient is able. Patient educated on diagnoses, prescriptions, follow-up care, return precautions. Strict return precautions given for worsening condition; questions answered discharge. Disposition for discharge with followup in 2 days with PCP/clinic. Departure Diagnosis: Primary Impression: Pain of left lower extremity Condition: Stable Patient Instructions: Understanding Leg Vein Problems, Possible Causes of Low Back or Leg Pain Referrals: [facility] Usted se akers hecho un examen mdico de control que le indica que no est en ellie condicin que requiera tratamiento urgente en el Departamento de Emergencia. Un estudio ms profundo y el tratamiento de armstrong condicin pueden esperar sin ningn riesgo hasta que usted sea atendida/o en el consultorio de armstrong mdico o ellie cl paige. Es responsabilidad suya arreglar ellie jarred para el seguimiento del jeanmarie. MANEJO DE CONDICIONES NO URGENTES EN EL FUTURO 1) Si usted tiene un mdico de atencin primaria: Usted debera llamar a armstrong mdico de atencin primaria antes de venir al depar tamento de emergencia. Despus de las horas de consultorio, armstrong doctor o armstrong asociado/a est disponible por telfono. El mdico o enfermero de chayito en el servicio telefnico puede asesorarle por nacho medio para atender el problema, o jeanmarie contrario se puede programar ellie jarred. 2) Si usted no tiene un mdico de atencin primaria: Llame al mdico o clnica de referencia que aparece abajo jimenez las horas de consultorio para hacer ellie jarred para que le vean. CLINICAS: [facility] [phone] [facility] [phone] [facility] [phone] [place] [phone] [place] [phone] [facility] [phone] [address] [facility]. [facility] () Usted se akers hecho un examen mdico de control que le indica que no est en ellie condicin que requiera tratamiento urgente en el Departamento de Emergencia. Un estudio ms profundo y el tratamiento de armstrong condicin pueden esperar sin ningn riesgo hasta que usted sea atendida/o en el consultorio de armstrong mdico o ellie cl paige. Es responsabilidad suya arreglar ellie jarred para el seguimiento del jeanmarie. MANEJO DE CONDICIONES NO URGENTES EN EL FUTURO 1) Si usted tiene un mdico de atencin primaria: Usted debera llamar a armstrong mdico de atencin primaria antes de venir al depar tamento de emergencia. Despus de las horas de consultorio, armstrong doctor o armstrong asociado/a est disponible por telfono. El mdico o enfermero de chayito en el servicio telefnico puede asesorarle por nacho medio para atender el problema, o jeanmarie contrario se puede programar ellie jarred. 2) Si usted no tiene un mdico de atencin primaria: Llame al mdico o condado institucions de referencia que aparece abajo jimenez las horas de consultorio para hacer ellie jarred para que le vean. SI USTED NO PUEDE PAGAR PARA JORJE UN MEDICO puede ir a: [facility] [address] [place] [address] [facility] [address] [place] [address] [facility] [address] [place] [address] [facility] [address] [place], [place] [phone] Additional Instructions: Muchas khushi por permitirnos participar en armstrong cuidado. Armstrong eris y seguridad es nuestra principal prioridad en [facility]. Es importante leer todas las instrucciones de danilo y la educacin que se proporcionan en armstrong paquete de danilo. Llame a armstrong mdico de atencin primaria MAANA para ellie jarred jimenez los prximos 2 a 4 stahl y lleve toda la informacin y los medicamentos recetados. Llene las recetas y siga exactamente las instrucciones de la etiqueta. -Tramadol es un analgsico opiceo; tome saurabh medicamento segn sea necesario para el dolor moderado a intenso. No se opera maquinaria pesada mientras se carin saurabh medicamento. Puede causar somnolencia. -Naproxeno es un medicamento antiinflamatorio / para el dolor; tome saurabh medicamento diariamente segn lo prescrito para la prxima semana para ayudar con la hinchazn / inflamacin / dolor. Si los sntomas empeoran y armstrong proveedor no est disponible, regrese inmediatamente al Departamento de Emergencias. Si desarrolla enrojecimiento, calor en las piernas, aumento del dolor; Regreso al departamento de emergencias. ---- Thank you very much for allowing us to participate in your care. Your health and safety is our top priority at [facility]. It is important to read all discharge instructions and education provided in your discharge packet. Call your primary care doctor TOMORROW for an appointment during the next 2-4 days and bring all the information and medications prescribed. Have prescriptions filled and follow precisely the directions on the label. -Tramadol is an opiate pain medication; take this medication as needed for moderate to severe pain. No operating of heavy machinery while taking this medication. It may cause drowsiness. -Naproxen is a anti-inflammatory/pain medication; take this medication daily as prescribed for the next week to help with swelling/inflammation/pain. If the symptoms get worse and your provider is unavailable, return to the Emergency Department immediately. If you develop redness, warmth to leg, increased pain; return to emergency department. PAULA ADAMS NP Feb 07, 2019 16:23
== END 2019-02-07 11:02 | disposition home or self-care (01) ==
LOC: FTE 07:09
DX: M79.605 Pain in left leg (principal); E11.9 Type 2 diabetes mellitus without complications; J45.909 Unspecified asthma, uncomplicated; Z79.4 Long term (current) use of insulin; Z79.82 Long term (current) use of aspirin
CPT/HCPCS: 96372; J1885; Z7502; Z7610

== ENCOUNTER 2019-03-25 15:59 | Emergency (ER) | payer OTHER ==
[~2019-03-25] VITALS: Ht 149.9 cm; Wt 80.0 kg
[~2019-03-25 15:59] MED LIST changes: +NAPR500T8 PO; +TRAM50TA2 PO
[2019-03-25 16:01] VITALS: Ht 149.9 cm; Wt 80.0 kg
[2019-03-25] MEDS ORDERED: ONDANSETRON (ODT) 4 MG TAB ODT STA (17:05)
[2019-03-25] MEDS ORDERED: morphine 4 MG/ML VIAL IM STA (17:05)
--- NOTE | 2019-03-25 18:48 | ERD ---
ER Documentation Chief Complaint Chief Complaint right leg pain/swelling HPI History of Present Illness: 53-year-old female who reports a past medical history of diabetes, hyperlipidemia, neuropathy coming in today with complaint of right leg swelling and pain that is been present for 2 to 3 days. Patient also reports warmth to affected extremity and chills. At home pharmacological/nonpharmacological treatment for symptoms: Tramadol; mild relief of pain Denies social concerns; Denies recent foreign travel ROS All systems reviewed and are negative except as per history of present illness. Medications Home Meds Active Scripts Hydrocodone/Acetaminophen ([place] 5-325 Tablet) 1 Each Tablet, 1 TAB PO Q6H PRN for MODERATE-SEVERE PAIN, #7 TAB Prov:PAULA ADAMS [employer]MENT REPAIRER 03/25/19 Naproxen* (Naprosyn*) 500 Mg Tablet, 500 MG PO BID PRN for PAIN AND/OR INFLAMMATION for 10 Days, #30 TAB Prov:PAULA ADAMS [employer] REPA[employer]ER 03/25/19 Cephalexin* (Keflex*) 500 Mg Capsule, 500 MG PO QID for right leg infection for 10 Days, CAP Prov:PAULA ADAMS [employer] REPA[employer] 03/25/19 Tramadol HCl (Tramadol HCl) 50 Mg Tablet, 50 MG PO Q8, #9 TAB Prov:PAULA ADAMS [employer] REPA[employer]ER 02/07/19 Naproxen* (Naproxen EC*) 500 Mg Tablet.dr, 500 MG PO BID PRN for PAIN AND/OR INFLAMMATION, #30 TAB Prov:PAULA ADAMS [employer] REPAIRER 02/07/19 Bacitracin* (Bacitracin Zinc Oint*) 28.35 Gm Oint, 1 APPLIC TOP BID for 10 Days, #1 TUB APPLI TO Prov:JAYSON KOENIG MD 10/12/18 Nystatin* (Nystatin*) 15 Gm Cr, 1 APPLIC TOP TID for 7 Days, #1 TUB Prov:JAYSON KOENIG MD 10/12/18 Hydrocodone/Acetaminophen ([place] 5-325 Tablet) 1 Each Tablet, 1 TAB PO BID PRN for PAIN, #10 TAB Prov:JAYSON KOENIG MD 10/12/18 Ibuprofen* (Motrin*) 400 Mg Tab, 400 MG PO Q8, #12 TAB Prov:JAYSON KOENIG MD 10/12/18 Prednisone* (Prednisone*) 20 Mg Tab, 40 MG PO DAILY for 4 Days, TAB Prov:JAYSON KOENIG MD 10/12/18 Reported Medications Insulin Lispro (Humalog Kwikpen U-100) 100 Unit/1 Ml Insuln.pen, 12 UNIT SQ TID, EA 07/15/18 Insulin Glargine,Hum.rec.anlog (Basaglar Kwikpen U-100) 100 Unit/1 Ml Insuln.p en, 80 UNIT SC QHS, EA 07/15/18 Tramadol Hcl* (Ultram*) 50 Mg Tablet, 50 MG PO DAILY PRN for PAIN, TAB 07/15/18 Pravastatin Sodium* (Pravastatin Sodium*) 40 Mg Tablet, 40 MG PO HS, TAB 07/15/18 Gabapentin* (Gabapentin*) 800 Mg Tablet, 800 MG PO TID, #90 TAB 07/15/18 Ibuprofen* (Ibuprofen*) 600 Mg Tablet, 600 MG PO Q8, TAB 07/15/18 Aspirin* (Aspirin* EC) 81 Mg Tablet.dr, 81 MG PO DAILY, TAB 07/15/18 Allergies Allergies: Coded Allergies: No Known Drug Allergies (Verified Allergy, Unknown, 08/11/18) PMhx/Soc History of Surgery: Yes (C/S ,Karen) Anesthesia Reaction: No Hx Neurological Disorder: No Hx Respiratory Disorders: Yes (ASTHMA ) Hx Cardiac Disorders: Yes (High cholesterol) Hx Psychiatric Problems: No Hx Miscellaneous Medical Probl: Yes (DM, hyperlipidemia, neuropathy, blood clots) Hx Alcohol Use: No Hx Substance Use: No Hx Tobacco Use: No Smoking Status: Never smoker FmHx Family History: diabetes, coronary disease Physical Exam Vitals Vital Signs Date Temp Pulse Resp B/P (MAP) Pulse Ox O2 O2 Flow FiO2 Time Delivery Rate 03/25/19 99.3 78 18 177/87 95 16:01 (117) Physical Exam Const: No acute distress Head: Atraumatic Eyes: Normal Conjunctiva ENT: Normal External Ears, Nose and Mouth. Neck: Full range of motion. No meningismus. Resp: Clear to auscultation bilaterally Cardio: Regular rate and rhythm, no murmurs Abd: Soft, non tender, non distended. Normal bowel sounds Skin: No petechiae or rashes Back: No midline or flank tenderness Ext: No cyanosis; RLE: Nonpitting edema, warmth noted to calf and foot no signs of breaks in skin, TTP, NVI Neur: Awake and alert Psych: Normal Mood and Affect Results 24 hrs Current Medications Medications Dose Sig/Juju Start Time Status Last (Trade) Ordered Route PRN Stop Time Admin Dose Reason Admin Morphine 4 mg ONCE STAT 03/25/19 DC Sulfate IM 17:05 (morphine) 03/25/19 17:07 Ondansetron 4 mg ONCE STAT 03/25/19 DC 03/25/19 HCl (Zofran ODT 17:05 17:33 Odt) 03/25/19 17:07 Ceftriaxone 1 gm ONCE ONCE 03/25/19 Sodium IM 19:00 (Rocephin) 03/25/19 19:01 Lidocaine 2.1 ml ONCE ONCE 03/25/19 (Xylocaine INFIL 19:00 1% (Mpf)) 03/25/19 19:01 1 tab ONCE ONCE 03/25/19 Acetaminophen PO 19:00 / 03/25/19 19:01 Hydrocodone Bitart ([place] (5/325)) Ketorolac 30 mg ONCE STAT 03/25/19 DC Tromethamine IM 18:49 (Toradol) 03/25/19 18:51 Procedures/MDM ED course includes a thorough examination and history. Medications: Morphine, Zofran Imaging: Venous Doppler ultrasound of right extremity, x-ray of tib-fib right, x-ray of foot right Labs: --- Low suspicion for life-threatening medical emergency. Low suspicion for infectious process that requires IM/IV V antibiotics. Low suspicion for neurovascular emergency. Low suspicion for orthopedic emergency that requires hospitalization or immediate surgical intervention. Patient presenting with constellation of symptoms likely representing uncomplicated right leg swelling and pain as characterized by history, physical exam findings, imaging findings. X-ray results are showing: IMPRESSION: 1. Chronic deformities of the right first through fourth MTP joints. 2. No new acute fracture is identified at this time. 3. Stable appearances compared to the prior study. 4. Mild dorsal soft tissue swelling. RPTAT: HMJB .Shawn Negrete MD, MD Date Time Electronically viewed and signed by .Shawn Negrete MD, MD on 03/25/2019 18:35 IMPRESSION: 1. Unremarkable right tibia and fibula x-ray series. RPTAT: PP .Shawn Negrete MD, MD Date Time Electronically viewed and signed by .Shawn Negrete MD, MD on 03/25/2019 18:36 Doppler report showing: IMPRESSION: No evidence of deep venous thrombosis within the right lower extremity. .Gilbert Rouse MD, MD Date Time Electronically viewed and signed by .Gilbert Rouse MD, MD on 03/25/2019 17:57 Patient reassessment 1850: No respiratory distress, otherwise relatively well appearing and nontoxic. Disposition given. Will prophylactically treat for cellulitis of right leg due to comorbidity of diabetes as well as history of chills, low-grade fever at home at 99.4 @ ER. Orders placed for ED Jaiden wrap application. Medication orders placed for ceftriaxone before discharge, ketorolac, [place]. patient educated on diagnoses, prescriptions, follow-up care, return precautions. Strict return precautions given for worsening condition; questions answered discharge. Disposition for discharge with followup in 2 days with PCP/clinic. Departure Diagnosis: Primary Impression: Pain of right leg Additional Impression: Swelling of right lower extremity Condition: Stable PAULA ADAMS NP Mar 25, 2019 18:48
[2019-03-25] MEDS ORDERED: KETOROLAC 30 MG INJ IM STA (18:49)
[2019-03-25] MEDS ORDERED: NAPR-985 PO (18:51)
[2019-03-25] MEDS ORDERED: CEPH-443 PO (18:51)
[2019-03-25] MEDS ORDERED: HYDR-4011 PO (18:54)
[2019-03-25] MEDS ORDERED: HYDROCODONE/APAP (5/325) TAB PO ONE (19:00)
[2019-03-25] MEDS ORDERED: LIDOCAINE 1% (MPF) 5 ML VIAL INFIL ONE (19:00)
[2019-03-25] MEDS ORDERED: CEFTRIAXONE 1 GM INJ IM ONE (19:00)
[2019-03-25 19:55] VITALS: BP 151/82; PULSE 76; RESP 16
== END 2019-03-25 19:57 | disposition home or self-care (01) ==
LOC: FTE 15:59
DX: M79.604 Pain in right leg (principal); M79.89 Other specified soft tissue disorders; E11.9 Type 2 diabetes mellitus without complications; J45.909 Unspecified asthma, uncomplicated; Z79.4 Long term (current) use of insulin; Z79.82 Long term (current) use of aspirin
CPT/HCPCS: 73590; 73630; 93971; 96372; J0696; J1885; Z7502; Z7610; J2270

== ENCOUNTER 2019-04-04 17:03 | Emergency (ER) | payer OTHER ==
[~2019-04-04] VITALS: Ht 152.4 cm; Wt 81.1 kg
[~2019-04-04 17:03] MED LIST changes: +CEPH-443 PO; +NAPR-985 PO
[2019-04-04 17:07] VITALS: Ht 152.4 cm; Wt 81.1 kg
[2019-04-04] MEDS ORDERED: SOD CHLORIDE 0.9% 1,000 ML IV ONE (20:00)
[2019-04-04] MEDS ORDERED: INSULIN LISPRO 100 UNIT/ML VIAL SC ONE (20:30)
[2019-04-04] MEDS ORDERED: ACCU-CHEK XX ONE (20:30)
[2019-04-04] MEDS ORDERED: ACET-141 PO (21:58)
[2019-04-04] MEDS ORDERED: TRAM50TA2 PO (21:58)
--- NOTE | 2019-04-04 22:02 | ERD ---
ER Documentation Chief Complaint Chief Complaint RT FOOT PAIN SWELLING X 10 DAYS ROS All systems reviewed and are negative except as per history of present illness. Medications Home Meds Active Scripts Acetaminophen* (Acetaminophen*) 500 MG Extra Strength Tablet, 500 MG PO Q4H PRN for PAIN AND OR ELEVATED TEMP, #30 TAB Prov:SERAFIN MEZA DO 04/04/19 Tramadol HCl (Tramadol HCl) 50 Mg Tablet, 50 MG PO Q6H PRN for PAIN, #30 TAB Prov:SERAFIN MEZA DO 04/04/19 Hydrocodone/Acetaminophen ([place] 5-325 Tablet) 1 Each Tablet, 1 TAB PO Q6H PRN for MODERATE-SEVERE PAIN, #7 TAB Prov:PAULA ADAMS V INSPECTOR GENERAL 03/25/19 Naproxen* (Naprosyn*) 500 Mg Tablet, 500 MG PO BID PRN for PAIN AND/OR INFLAMMATION for 10 Days, #30 TAB Prov:PAULA ADAMS [employer]AL 03/25/19 Cephalexin* (Keflex*) 500 Mg Capsule, 500 MG PO QID for right leg infection for 10 Days, CAP Prov:PAULA ADAMS [employer] 03/25/19 Tramadol HCl (Tramadol HCl) 50 Mg Tablet, 50 MG PO Q8, #9 TAB Prov:PAULA ADAMS [employer] 02/07/19 Naproxen* (Naproxen EC*) 500 Mg Tablet.dr, 500 MG PO BID PRN for PAIN AND/OR INFLAMMATION, #30 TAB Prov:PAULA ADAMS [employer] 02/07/19 Bacitracin* (Bacitracin Zinc Oint*) 28.35 Gm Oint, 1 APPLIC TOP BID for 10 Days, #1 TUB APPLI TO Prov:JAYSON KOENIG MD 10/12/18 Nystatin* (Nystatin*) 15 Gm Cr, 1 APPLIC TOP TID for 7 Days, #1 TUB Prov:JAYSON KOENIG MD 10/12/18 Hydrocodone/Acetaminophen ([place] 5-325 Tablet) 1 Each Tablet, 1 TAB PO BID PRN for PAIN, #10 TAB Prov:JAYSON KOENIG MD 10/12/18 Ibuprofen* (Motrin*) 400 Mg Tab, 400 MG PO Q8, #12 TAB Prov:JAYSON KOENIG MD 10/12/18 Prednisone* (Prednisone*) 20 Mg Tab, 40 MG PO DAILY for 4 Days, TAB Prov:JAYSON KOENIG MD 10/12/18 Reported Medications Insulin Lispro (Humalog Kwikpen U-100) 100 Unit/1 Ml Insuln.pen, 12 UNIT SQ TID, EA 07/15/18 Insulin Glargine,Hum.rec.anlog (Basaglar Kwikpen U-100) 100 Unit/1 Ml Insuln.pen, 80 UNIT SC QHS, EA 07/15/18 Tramadol Hcl* (Ultram*) 50 Mg Tablet, 50 MG PO DAILY PRN for PAIN, TAB 07/15/18 Pravastatin Sodium* (Pravastatin Sodium*) 40 Mg Tablet, 40 MG PO HS, TAB 07/15/18 Gabapentin* (Gabapentin*) 800 Mg Tablet, 800 MG PO TID, #90 TAB 07/15/18 Ibuprofen* (Ibuprofen*) 600 Mg Tablet, 600 MG PO Q8, TAB 07/15/18 Aspirin* (Aspirin* EC) 81 Mg Tablet.dr, 81 MG PO DAILY, TAB 07/15/18 Allergies Allergies: Coded Allergies: No Known Drug Allergies (Verified Allergy, Unknown, 08/11/18) PMhx/Soc History of Surgery: Yes (C/S ,Karen) Anesthesia Reaction: No Hx Neurological Disorder: No Hx Respiratory Disorders: Yes (ASTHMA ) Hx Cardiac Disorders: Yes (High cholesterol) Hx Psychiatric Problems: No Hx Miscellaneous Medical Probl: Yes (DM, hyperlipidemia, neuropathy, blood clots) Hx Alcohol Use: No Hx Substance Use: No Hx Tobacco Use: No Smoking Status: Never smoker Physical Exam Vitals Vital Signs Date Temp Pulse Resp B/P (MAP) Pulse Ox O2 O2 Flow FiO2 Time Delivery Rate 04/04/19 98.2 88 18 155/69 96 17:07 (97) Physical Exam Const: No acute distress Head: Atraumatic Eyes: Normal Conjunctiva ENT: Normal External Ears, Nose and Mouth. Neck: Full range of motion. No meningismus. Resp: Clear to auscultation bilaterally Cardio: Regular rate and rhythm, no murmurs Abd: Soft, non tender, non distended. Normal bowel sounds Skin: No petechiae or rashes Back: No midline or flank tenderness Ext: No cyanosis, or edema Neur: Awake and alert Psych: Normal Mood and Affect Result Diagram: 04/04/19 1849 04/04/19 184 Results 24 hrs Laboratory Tests Test 04/04/19 18:49 04/04/19 20:54 04/04/19 21:50 White Blood Count 8.1 10^3/ul Red Blood Count 4.17 10^6/ul Hemoglobin 12.4 g/dl Hematocrit 37.9 % Mean Corpuscular Volume 90.9 fl Mean Corpuscular Hemoglobin 29.7 pg Mean Corpuscular 32.7 g/dl Hemoglobin Concent Red Cell Distribution Width 11.6 % Platelet Count 330 10^3/UL Mean Platelet Volume 10.3 fl Immature Granulocytes % 0.400 % Neutrophils % 66.2 % Lymphocytes % 24.3 % Monocytes % 6.8 % Eosinophils % 1.9 % Basophils % 0.4 % Nucleated Red Blood Cells % 0.0 /100WBC Immature Granulocytes # 0.030 10^3/ul Neutrophils # 5.4 10^3/ul Lymphocytes # 2.0 10^3/ul Monocytes # 0.6 10^3/ul Eosinophils # 0.2 10^3/ul Basophils # 0.0 10^3/ul Nucleated Red Blood Cells # 0.0 10^3/ul Sodium Level 137 mmol/L Potassium Level 5.5 mmol/L Chloride Level 100 mmol/L Carbon Dioxide Level 28 mmol/L Anion Gap 9 Blood Urea Nitrogen 24 mg/dl Creatinine 1.32 mg/dl Est Glomerular Filtrat Rate mL/min 42 mL/min Glucose Level 617 mg/dl Calcium Level 8.5 mg/dl Total Bilirubin 0.2 mg/dl Direct Bilirubin 0.00 mg/dl Indirect Bilirubin 0.2 mg/dl Aspartate Amino Transf (AST/SGOT) 19 IU/L Alanine 16 IU/L Aminotransferase (ALT/SGPT) Alkaline Phosphatase 159 IU/L Total Protein 7.5 g/dl Albumin 3.7 g/dl Globulin 3.80 g/dl Albumin/Globulin Ratio 0.97 Bedside Glucose 495 mg/dL 431 mg/dL Current Medications Medications Dose Sig/Juju Start Time Status Last (Trade) Ordered Route PRN Stop Time Admin Dose Reason Admin Sodium 1,000 ml @ Q1H ONCE 04/04/19 DC 04/04/19 Chloride 1,000 mls/hr IV 20:00 20:05 04/04/19 20:59 Insulin 12 unit ONCE ONCE 04/04/19 DC 04/04/19 Human SC 20:30 20:57 Lispro 04/04/19 20:31 (Humalog) Diagnostic 1 ea 2 HRS AFTER 04/04/19 DC Test (Pha) HUMALOG ONCE 20:30 (Accu-Chek) XX 04/04/19 20:31 Departure Diagnosis: Primary Impression: Foot fracture, right Encounter type: initial encounter Fracture type: closed Qualified Codes: S92.901A - Unspecified fracture of right foot, initial encounter for closed fracture Additional Impression: Hyperglycemia Condition: Fair Patient Instructions: Fracture, Foot Referrals: [facility] YOU HAVE RECEIVED A MEDICAL SCREENING EXAM AND THE RESULTS INDICATE THAT YOU DO NOT HAVE A CONDITION THAT REQUIRES URGENT TREATMENT IN THE EMERGENCY DEPARTMENT. FURTHER EVALUATION AND TREATMENT OF YOUR CONDITION CAN WAIT UNTIL YOU ARE SEEN IN YOUR DOCTORS OFFICE WITHIN THE NEXT 1-2 DAYS. IT IS YOUR RESPONSIBILITY TO MAKE AN APPOINTMENT FOR FOLOW-UP CARE. IF YOU HAVE A PRIMARY DOCTOR --you should call your primary doctor and schedule an appointment IF YOU DO NOT HAVE A PRIMARY DOCTOR YOU CAN CALL OUR PHYSICIAN REFERRAL HOTLINE AT IF YOU CAN NOT AFFORD TO SEE A PHYSICIAN YOU CAN CHOSE FROM THE FOLLOWING [facility] [phone] [id number] [facility]. [facility] [address] [facility]. [facility] [address] [facility] [facility] [address] [facility]. [facility] [address] [facility]. [facility]. [address] Additional Instructions: Llame al doctor MAANA y lc ellie KASSANDRA PARA DENTRO DE 1-2 MORGAN.Dgale a la secretaria que nosotros le instruimos hacer esta kassandra.Avise o llame si leach condicin se empeora antes de la kassandra. Regresa aqui si peor o no mejor.. Follow up with orthopedic surgery or podiatry SERAFIN MEZA DO Apr 04, 2019 22:02
[2019-04-04 22:46] VITALS: BP 180/84; PULSE 71; RESP 16
== END 2019-04-04 22:49 | disposition home or self-care (01) ==
LOC: FTE 17:03
DX: S92.251A Displaced fracture of navicular [scaphoid] of right foot, initial encounter for closed fracture (principal); J45.909 Unspecified asthma, uncomplicated; E11.65 Type 2 diabetes mellitus with hyperglycemia; X58.XXXA Exposure to other specified factors, initial encounter; Y92.9 Unspecified place or not applicable; Z79.4 Long term (current) use of insulin; Z79.82 Long term (current) use of aspirin
CPT/HCPCS: 73700; 80053; 82962; 85025; 96372; J1815; J7030; Z7502

== ENCOUNTER 2019-05-30 17:49 | Emergency (ER) | payer OTHER ==
[~2019-05-30] VITALS: Ht 152.4 cm; Wt 81.6 kg
[~2019-05-30 17:49] MED LIST changes: +ACET-141 PO; +SULF1TAB31 PO
[2019-05-30 17:52] VITALS: Ht 152.4 cm; Wt 81.6 kg
[2019-05-30] MEDS ORDERED: IPRATROPIUM (NEB) 0.5 MG/2.5 ML AMP INH STA (18:25)
[2019-05-30] MEDS ORDERED: ALBUTEROL 0.083% (NEB) 2.5 MG/3 ML AMP INH STA (18:25)
[2019-05-30] MEDS ORDERED: ONDANSETRON 4 MG INJ IV STA (18:53)
[2019-05-30] MEDS ORDERED: morphine 4 MG/ML VIAL IV STA (18:53)
--- NOTE | 2019-05-30 18:59 | ERD ---
ER Documentation Chief Complaint Chief Complaint right foot swelling x 2 months HPI This is a very pleasant 53-year-old female with past medical history of hypertension and insulin-dependent diabetes mellitus. The patient indicates for the past 2 months she has had intermittent swelling of her right foot and lower extremity. She indicates that it has progressively worsened over the past several days. When the onset initially started she was treated for cellulitis and completed a course of antibiotics for several days. She indicates that the under went radiographic imaging and she was told there was no fracture but she also denies any trauma. She is not complaining of shortness of breath that is occurred over the past several days with significant calf tenderness. She stated that in the past 48 hours she has had worsening redness of her right lower extremity and warmth to the touch. She had no fevers or shaking or chills. No recent travel or prolonged immobilization. She took ibuprofen but no improvement of her symptoms. She is been compliant with all of her medications. She also took gabapentin but this did not improve her symptoms. No chest pain. No abdominal pain. ROS All systems reviewed and are negative except as per history of present illness. Medications Home Meds Active Scripts Acetaminophen* (Acetaminophen*) 500 MG Extra Strength Tablet, 500 MG PO Q4H PRN for PAIN AND OR ELEVATED TEMP, #30 TAB Prov:SERAFIN MEZA DO 04/04/19 Tramadol HCl (Tramadol HCl) 50 Mg Tablet, 50 MG PO Q6H PRN for PAIN, #30 TAB Prov:SERAFIN MEZA DO 04/04/19 Hydrocodone/Acetaminophen ([place] 5-325 Tablet) 1 Each Tablet, 1 TAB PO Q6H PRN for MODERATE-SEVERE PAIN, #7 TAB Prov:PAULA ADAMS NP 03/25/19 Naproxen* (Naprosyn*) 500 Mg Tablet, 500 MG PO BID PRN for PAIN AND/OR INFLAMMATION for 10 Days, #30 TAB Prov:PAULA ADAMS V [employer]IX [employer] TRAINER 03/25/19 Cephalexin* (Keflex*) 500 Mg Capsule, 500 MG PO QID for right leg infection for 10 Days, CAP Prov:PAULA ADAMS V [employer] TRAINER 03/25/19 Tramadol HCl (Tramadol HCl) 50 Mg Tablet, 50 MG PO Q8, #9 TAB Prov:PAULA ADAMS V [employer] TRAINER 02/07/19 Naproxen* (Naproxen EC*) 500 Mg Tablet.dr, 500 MG PO BID PRN for PAIN AND/OR INFLAMMATION, #30 TAB Prov:PAULA ADAMS V [employer] TRAINER 02/07/19 Bacitracin* (Bacitracin Zinc Oint*) 28.35 Gm Oint, 1 APPLIC TOP BID for 10 Days, #1 TUB APPLI TO Prov:JAYSON KOENIG MD 10/12/18 Nystatin* (Nystatin*) 15 Gm Cr, 1 APPLIC TOP TID for 7 Days, #1 TUB Prov:JAYSON KOENIG MD 10/12/18 Hydrocodone/Acetaminophen ([place] 5-325 Tablet) 1 Each Tablet, 1 TAB PO BID PRN for PAIN, #10 TAB Prov:JAYSON KOENIG MD 10/12/18 Ibuprofen* (Motrin*) 400 Mg Tab, 400 MG PO Q8, #12 TAB Prov:JAYSON KOENIG MD 10/12/18 Prednisone* (Prednisone*) 20 Mg Tab, 40 MG PO DAILY for 4 Days, TAB Prov:JAYSON KOENIG MD 10/12/18 Reported Medications Insulin Lispro (Humalog Kwikpen U-100) 100 Unit/1 Ml Insuln.pen, 12 UNIT SQ TID, EA 07/15/18 Insulin Glargine,Hum.rec.anlog (Basaglar Kwikpen U-100) 100 Unit/1 Ml Insuln.pen, 80 UNIT SC QHS, EA 07/15/18 Tramadol Hcl* (Ultram*) 50 Mg Tablet, 50 MG PO DAILY PRN for PAIN, TAB 07/15/18 Pravastatin Sodium* (Pravastatin Sodium*) 40 Mg Tablet, 40 MG PO HS, TAB 07/15/18 Gabapentin* (Gabapentin*) 800 Mg Tablet, 800 MG PO TID, #90 TAB 07/15/18 Ibuprofen* (Ibuprofen*) 600 Mg Tablet, 600 MG PO Q8, TAB 07/15/18 Aspirin* (Aspirin* EC) 81 Mg Tablet.dr, 81 MG PO DAILY, TAB 07/15/18 Allergies Allergies: Coded Allergies: No Known Drug Allergies (Verified Allergy, Unknown, 08/11/18) PMhx/Soc History of Surgery: Yes (C/S ,Karen) Anesthesia Reaction: No Hx Neurological Disorder: No Hx Respiratory Disorders: Yes (ASTHMA ) Hx Cardiac Disorders: Yes (High cholesterol) Hx Psychiatric Problems: No Hx Miscellaneous Medical Probl: Yes (DM, hyperlipidemia, neuropathy, blood clots) Hx Alcohol Use: No Hx Substance Use: No Hx Tobacco Use: No Smoking Status: Never smoker Physical Exam Vitals Vital Signs Date Temp Pulse Resp B/P (MAP) Pulse Ox O2 O2 Flow FiO2 Time Delivery Rate 05/30/19 81 20 94 21 18:55 05/30/19 97.9 86 18 222/98 96 17:52 (139) Physical Exam Constitutional:Well-developed. Well-nourished. HEENT:Normocephalic. Atraumatic.Pupils were equal round reactive to light. Moist mucous membranes.No tonsillar exudates. Neck: No nuchal rigidity. No lymphadenopathy. No posterior cervical spine tenderness or step-offs. Respiratory: Not using accessory muscles of respiration.Lungs were clear to auscultation bilaterally. No rhonchi. No rales. No wheezing. Cardiovascular: Regular rate regular rhythm.No murmurs. No rubs were appreciated.S1, S2 normal. Distal pulses are palpable 2+ bilaterally. GI: Abdomen was soft. Nontender. Non Distended. No pulsatile abdominal masses or bruits. No rebound. No guarding. Bowel sounds were present and normal. Muscle skeletal: Full range of motion of both the upper and lower extremities bilaterally.Normal muscle tone.asymmetrical swelling of the right lower extremity of greater than 1 cm compared to the left. Calf tenderness on the right. Pain not out of proportion to physical exam. Skin: No petechia, no purpura. No lesions on the palms or the soles of the feet. No maculopapular rash. Erythremia and warmth to the touch of the entire right lower extremity. No subcutaneous emphysema. NEURO: Patient was alert, awake, orientated x3.No facial droop. Gait observed and normal with no ataxia.Speech had regular rate and rhythm. No focal neuro logical deficits. Result Diagram: 05/30/19183705/30/191837 Results 24 hrs Laboratory Tests Test 05/30/19 18:38 05/30/19 19:30 05/30/19 19:58 White Blood Count 7.1 10^3/ul Red Blood Count 4.21 10^6/ul Hemoglobin 12.5 g/dl Hematocrit 38.7 % Mean Corpuscular Volume 91.9 fl Mean Corpuscular Hemoglobin 29.7 pg Mean Corpuscular 32.3 g/dl Hemoglobin Concent Red Cell Distribution Width 11.8 % Platelet Count 296 10^3/UL Mean Platelet Volume 10.7 fl Immature Granulocytes % 0.400 % Neutrophils % 61.3 % Lymphocytes % 28.4 % Monocytes % 7.4 % Eosinophils % 2.1 % Basophils % 0.4 % Nucleated Red Blood Cells % 0.0 /100WBC Immature Granulocytes # 0.030 10^3/ul Neutrophils # 4.3 10^3/ul Lymphocytes # 2.0 10^3/ul Monocytes # 0.5 10^3/ul Eosinophils # 0.2 10^3/ul Basophils # 0.0 10^3/ul Nucleated Red Blood Cells # 0.0 10^3/ul Prothrombin Time 10.9 Sec Prothrombin Time Ratio 0.9 INR International 0.77 Normalized Ratio Activated Partial Thromboplast 28.1 Sec Time Sodium Level 136 mmol/L Potassium Level 4.8 mmol/L Chloride Level 97 mmol/L Carbon Dioxide Level 30 mmol/L Anion Gap 9 Blood Urea Nitrogen 31 mg/dl Creatinine 1.34 mg/dl Est Glomerular Filtrat 41 mL/min Rate mL/min Glucose Level 673 mg/dl Calcium Level 8.7 mg/dl Total Bilirubin 0.3 mg/dl Direct Bilirubin 0.00 mg/dl Indirect Bilirubin 0.3 mg/dl Aspartate Amino 30 IU/L Transf (AST/SGOT) Alanine 53 IU/L Aminotransferase (ALT/SGPT) Alkaline Phosphatase 191 IU/L Creatine Kinase 144 IU/L Creatine Kinase Index 1.6 Creatinine Kinase MB (Mass) 2.25 ng/ml Troponin I < 0.012 ng/ml B-Type Natriuretic Peptide 266 PG/ML Total Protein 7.6 g/dl Albumin 3.8 g/dl Globulin 3.80 g/dl Albumin/Globulin Ratio 1.00 Urine Color COLORLESS Urine Clarity CLEAR Urine pH 7.0 Urine Specific [place] 1.016 Urine Ketones NEGATIVE mg/dL Urine Nitrite NEGATIVE mg/dL Urine Bilirubin NEGATIVE mg/dL Urine Urobilinogen NEGATIVE mg/dL Urine Leukocyte Esterase NEGATIVE Yasmin/ul Urine Microscopic RBC 1 /HPF Urine Microscopic WBC 0 /HPF Urine Squamous Epithelial Cells FEW /HPF Urine Hemoglobin NEGATIVE mg/dL Urine Glucose 3+ mg/dL Urine Total Protein 2+ mg/dl Bedside Glucose > 595 mg/dL Current Medications Medications Dose Sig/Juju Start Time Status Last (Trade) Ordered Route PRN Stop Time Admin Dose Reason Admin Albuterol 5 mg ONCE STAT 05/30/19 DC 05/30/19 (Proventil INH 18:25 18:55 0.083% (Neb)) 05/30/19 18:29 Ipratropium 0.5 mg ONCE STAT 05/30/19 DC 05/30/19 [place] INH 18:25 18:55 (Atrovent 05/30/19 18:29 0.02% (Neb)) Morphine 4 mg ONCE STAT 05/30/19 DC Sulfate IV 18:53 (morphine) 05/30/19 18:54 Ondansetron 4 mg ONCE STAT 05/30/19 DC HCl (Zofran IV 18:53 Inj) 05/30/19 18:54 Insulin 10 unit ONCE STAT 05/30/19 DC Human SC 19:40 Lispro 05/30/19 20:08 (Humalog) Insulin 8 unit ONCE STAT 05/30/19 DC Human IV 19:40 Regular 05/30/19 20:09 (Novolin-R) Nicardipine 30 mg ONCE ONCE 05/30/19 DC 05/30/19 HCl PO 20:00 20:18 (Cardene) 05/30/19 20:04 Tramadol 50 mg ONCE ONCE 05/30/19 DC HCl PO 20:00 (Ultram) 05/30/19 20:04 Insulin 8 unit ONCE STAT 05/30/19 DC Human IV 20:11 Regular 05/30/19 20:12 (Novolin-R) 1 ea NOTE XX 05/30/19 Miscellaneous 20:30 Information Glucose 15 gm Q15M PRN 05/30/19 (Glutose) PO DECREASED 20:30 GLUCOSE Glucose 22.5 gm Q15M PRN 05/30/19 (Glutose) PO DECREASED 20:30 GLUCOSE Dextrose 25 ml Q15M PRN 05/30/19 (D50w IV DECREASED 20:30 Syringe) GLUCOSE Dextrose 50 ml Q15M PRN 05/30/19 (D50w IV DECREASED 20:30 Syringe) GLUCOSE Glucagon 1 mg Q15M PRN 05/30/19 (Glucagen) IM DECREASED 20:30 GLUCOSE Glucose 15 gm Q15M PRN 05/30/19 (Glutose) BUCCAL 20:30 DECREASED GLUCOSE Cefazolin 50 ml @ ONCE IVPB 05/30/19 UNV Sodium 100 mls/hr 20:30 05/30/19 20:59 Procedures/MDM The patient presented to the emergency department with a spreading erythematous superficial infection of the skin and subcutaneous tissues. My differential diagnosis included but was not limited to necrotizing fasciitis, lymphangitis, thrombophlebitis, deep vein thrombosis, allergic reaction, neoplasm, gout or abscess. Predisposing factors of the progressive spread of erythema, warmth, pain and tenderness was considered such as lymphedema, tinea pedis, open wounds, prior trauma or surgery, pre-existing skin lesion (furuncle), retained foreign body, injection drug use or vascular or immune compromise. The patient was placed on antibiotics to cover Staphylococcus aureus, including resistant strains such as community-acquired methicillin-resistant S. aureus. Due to the asymmetrical calf tenderness and swelling the patient did receive venous duplex ultrasounds of the lower extremities. There is no evidence of a deep vein thrombosis. 12 Lead EKG tracing ordered and reviewed by myself showed: Normal sinus rhythm of 81 bpm and no arrhythmia. OH interval normal. QRS duration normal. No ST segment elevation No ST segment depression. No changes consistent with acute ischemia. The patient had no physical exam findings to suggest arterial insufficiency Patient was hyperglycemic with a blood glucose of 673 however there is no k etosis. The patient received IV insulin as well as subcutaneous insulin and IV fluids for resolution of her hyperglycemia. The patient had no leukocytosis and was afebrile. My clinical suspicion was low for complication such as abscess or necrotizing fasciitis but the patient was given a dose of IV Ancef and will be sent home with further antibiotics to treat suspected cellulitis. She will be sent home with Bactrim and Keflex. I instructed her to follow-up in the next 48 hours with her primary care physician and to return to the emergency department immediately if there is no improvement of her symptoms. Patient was given tramadol for analgesia control. The patient was discharged home in fair condition. They were instructed to return to the emergency department at any time if there was any worsening of their condition. The patient stated they would follow up with their PCP in the next 24-48 hours to initiate a suitable medication regimen under the care of their PCP as well as to allow their PCP to monitor any drug reactions. The patient was discharged home with prescriptions a fter they gave informed consent to the new medication. They were also fully informed by myself on the adverse effects and adverse drug interactions in order to provide adequate safeguards to prevent possible adverse reactions to medications. Departure Diagnosis: Primary Impression: Cellulitis Site of cellulitis: extremity Site of cellulitis of extremity: lower extremity Laterality: right Qualified Codes: L03.115 - Cellulitis of right lower limb Additional Impression: Hyperglycemia without ketosis Condition: ALESSIO Cramer MD May 30, 2019 18:59
[2019-05-30] MEDS ORDERED: INSULIN LISPRO 100 UNIT/ML VIAL SC STA (19:40)
[2019-05-30] MEDS ORDERED: INSULIN REGULAR 10 ML INJ IV STA ×3 (19:40→22:01)
[2019-05-30] MEDS ORDERED: traMADol 50 MG TAB PO ONE (20:00)
[2019-05-30] MEDS ORDERED: NICARDipine HCL 30 MG CAPSULE PO ONE (20:00)
[2019-05-30] MEDS ORDERED: GLUCAGON 1 MG INJ IM PRN (20:30)
[2019-05-30] MEDS ORDERED: CEFAZOLIN 1 GM/50 ML (PMX) 50 ML IVPB SCH (20:30)
[2019-05-30] MEDS ORDERED: GLUCOSE GEL 15 GRAM TUBE BUCCAL PRN (20:30)
[2019-05-30] MEDS ORDERED: GLUCOSE GEL 15 GRAM TUBE PO PRN ×2 (20:30)
[2019-05-30] MEDS ORDERED: DEXTROSE 50% 50 ML SYRINGE IV PRN ×2 (20:30)
[2019-05-30] MEDS ORDERED: INSULIN REGULAR, HUMAN 100 UNIT/1 ML 3ML VIAL IV ONE (22:05)
[2019-05-30 23:46] VITALS: BP 113/52; PULSE 78; RESP 16
== END 2019-05-30 23:51 | disposition home or self-care (01) ==
LOC: E/R 17:49
DX: L03.115 Cellulitis of right lower limb (principal); E11.65 Type 2 diabetes mellitus with hyperglycemia; J45.909 Unspecified asthma, uncomplicated; I10 Essential (primary) hypertension; Z79.4 Long term (current) use of insulin; Z79.82 Long term (current) use of aspirin
CPT/HCPCS: 36415; 71045; 80053; 81001; 82550; 82553; 82962; 83880; 84484; 85025; 85610; 85730; 87040; 93005; 93970; 94664; 96372; 96374; 96375; 96376; J0690; J1815; J2270; J2405; Z7502; Z7610

== ENCOUNTER 2019-06-11 18:30 | Emergency (ER) | payer OTHER ==
[~2019-06-11] VITALS: Wt 86.5 kg
[2019-06-11 19:00] VITALS: BP 149/72; PULSE 76; RESP 16
[2019-06-11] MEDS ORDERED: DIPHTH/TET/ACEL PERTUSS (ADULT) 0.5 ML VIAL IM* ONE (21:00)
[2019-06-11] MEDS ORDERED: ACETAMINOPHEN 325 MG TAB PO ONE (21:00)
== END 2019-06-11 21:40 | disposition home or self-care (01) ==
LOC: FTE 18:30
DX: S61.211A Laceration without foreign body of left index finger without damage to nail, initial encounter (principal); W26.0XXA Contact with knife, initial encounter; Y92.000 Kitchen of unspecified non-institutional (private) residence as the place of occurrence of the external cause; Z23 Encounter for immunization; Z79.4 Long term (current) use of insulin; Z79.82 Long term (current) use of aspirin
CPT/HCPCS: 12001; 90471; 90715; Z7502; Z7610